=== PATIENT | female | born 1990 | race Caucasian/White ===

== ENCOUNTER 2021-10-01 10:53 | Outpatient (CLI) | payer BC, MEDICAID, SELFPAY ==
[2021-10-01 12:19] LABS: Hematocrit 40.6 % (37-47); Hemoglobin 14.3 g/dL (12.0-15.0); Mean Corp Hgb Conc 35.2 g/dL (32-36); Mean Corpuscular Hgb 30.6 pg (27.0-32.0); Mean Corpuscular Volume 86.9 fL (81-99); Mean Platelet Vol. 9.4 fl (6.2-12.0); Platelet Count 295 K/mm3 (150-450); RBC Distribution Width CV 12.4 % (11.6-14.6); RBC Distribution Width SD 39.4 fl (35.1-43.9); Red Blood Count 4.67 M/mm3 (4.2-5.4); White Blood Count 6.1 K/mm3 (4.4-11.0)
[2021-10-01 13:32] LABS: Estradiol 111.8 pg/mL; Luteinizing Hormone 4.6 mIU/mL; T4 Free Direct 0.95 ng/dL (0.76-1.46); Thyroid Stim Hormone (TSH) 0.96 uIU/mL (0.358-3.74)
[2021-10-04 09:25] LABS: Testosterone Free 2.3 pg/mL (0.0-4.2)
[2021-10-10 07:54] LABS: HPV APTIMA, High Risk Negative (Negative)
[2021-10-10 07:57] LABS: HPV Reflexed? YES, CHARGE PATIENT
== END 2021-10-01 23:59 | disposition home or self-care (01) ==
LOC: WOBLAB 11:06
PROVIDERS: Referring Provider Obstetrics & Gynecology; Visit Provider Obstetrics & Gynecology
DX: R10.2 Pelvic and perineal pain (principal); Z12.4 Encounter for screening for malignant neoplasm of cervix
CPT/HCPCS: 36415; 82670; 83001; 83002; 84402; 84439; 84443; 85027; 87624; 88175; G0145

== ENCOUNTER 2025-06-20 15:42 | Emergency (ER) | payer OTHER, SELFPAY ==
[2025-06-20 15:42] VITALS: BP 140/87; PULSE 91; RESP 16; TEMP 36.9; O2SAT 100; BMI 29.2
--- NOTE | 2025-06-20 17:12 | EDS_ITS ---
HPI History of Present Illness Chief Complaint: Bite Narrative Narrative: Patient is a 35-year-old female presenting to the emergency department after a cat bite last night. Patient states that there is a stray cat in her neighborhood and it ran in her house when her door was open last evening. She states that the cat got into a fight with her cats when she tried to break it up and then the cat bit her left wrist. She states it then scratched her right arm. She denies any other injuries. States that the cat is no longer in her house and she is unsure where it is at. Unsure of its rabies vaccine status. [facility] Medical History unable to obtain Home Medications ?Medication ?Instructions ?Recorded ?Last Taken ?Type amoxicillin 875 mg-potassium 1 tab PO BID 7 days #14 t abs 06/20/25 Unknown Rx clavulanate 125 mg tablet Allergy/AdvReac Type Severity Reaction Status Date / Time No Known Allergies Allergy Verified 06/20/25 15:49 Social History Smoking Status: Unknown if ever smoked ROS ROS ED ROS Narrative see HPI EXAM Physical Exam Narrative Exam Narrative: Vital signs: Reviewed General: Alert and oriented x 3. No acute distress. Well-appearing, nontoxic HEENT: Head is normocephalic and atraumatic, sinuses nontender, pupils equal round and reactive. Nares are patent. Oropharynx and throat exams normal. Neck: Supple without lymphadenopathy nontender Cardiovascular: Regular rate and rhythm, no murmurs. No rubs or gallops. Normal S1 and S2 Respiratory: Clear to auscultation bilaterally. No wheezes, rales, rhonchi Abdominal: Soft and nontender. Normal bowel sounds. No guarding or rebound. Nonsurgical abdomen Extremities: There are scattered abrasions to the mid and distal right forearm. No lacerations or gaping wounds. Small puncture like abrasions to the left volar forearm. Radial pulse intact bilaterally. No tenderness. No bruising. Normal range of motion. Normal sensation. The rest of the physical exam is unremarkable Const Vital Signs: 06/20/25 15:42 06/20/25 19:35 Temperature 98.5 F 98.4 F Temperature Source Temporal Pulse Rate 91 69 Respiratory Rate 16 12 Blood Pressure 140/87 H 93/63 Blood Pressure Mean 104 73 Pulse Ox 100 100 Oxygen Delivery Method Room Air MDM MDM MDM Narrative Medical decision making narrative: Patient is a 35-year-old female presenting to the emergency department for a cat bite last night. Patient was seen and examined. Vitals are stable. Patient resting in bed comfortably no acute distress. Discussed rabies vaccine and immunoglobulin with the patient although low chance with a stray cat. She is agreeable with both. She will also be given her first dose of Augmentin. She has no large puncture wounds or gaping lacerations to the hands or forearms that I think require x-ray imaging. I injected some of the immunoglobulin around the wounds that the patient reports are bite wounds. Again very difficult to tell given how superficial the wounds appear. Per nursing staff the patient did have a syncopal event after receiving one of the shots. I went to reevaluate the patient and she is sitting in bed with no complaints. States she feels back to baseline at this time. She had this happen to her once before. I do not think this requires further workup given she is back to baseline. Patient was educated on returning onto days 3, 7 and 14 for repeat vaccines. Patient discharged from the Emergency Department. I do not feel that the patient's evaluation reveals any acute reason for admission at this time. I instructed them to either follow-up with their primary care physician or promptly return to the Emergency Department for reevaluation should symptoms worsen or new symptoms develop. I explained what symptoms would indicate the need to return to the emergency department. Shared decision making was used. The patient voiced understanding of the treatment plan and is agreeable with it. Clinical impression: Cat bite History & Record Review Discussion w/independent historian: Patient Discharge Plan Triage Chief Complaint: Bite ED Provider: Seda Arce Dx/Rx/DC Orders Clinical Impression: Cat bite Instructions: ED Cat Bite Prescriptions: New amoxicillin-pot clavulanate 875-125 mg tablet 1 tab PO BID 7 Days Qty: 14 0RF Primary Care Provider: Care Physician,No Primary Referrals: Jim Leonard MD [Med Staff - Active Staff, Family Practice] - As soon as possible Care Physician,No Primary [Primary Care Provider, Medical] Activity Restrictions/Additional Instructions: You need to return on days 3, 7 and 14 for repeat rabies vaccine. Watch the areas for signs of infection which would include redness, drainage, warmth or swelling. Take the antibiotic as prescribed. Your evaluation in the Emergency Department did not reveal any acute reason for admission. However, I want to emphasize that you may be early in the course of a disease process or illness even if it is not present. For this reason you should follow-up within 24 hours for reevaluation with either your primary care physician or if necessary back here in the Emergency Department. You should return to the Emergency Department immediately if your symptoms worsen or new symptoms develop. Print Language: Citizen Of [place] Disposition Disposition: Home, Self Care Discharge Date/Time: 06/20/25 19:36
--- NOTE | 2025-06-20 17:46 | CM.ED ---
Social work Reason for referral: no PCP Referral source: case find SW entered patient's room, introducing self and role at [facility]. Patient welcomed SW visit and confirmed lacking a PCP. Patient accepted resources of [facility] Provider Directory and [facility] information. Patient denied further needs at this time. Rosalva Nguyễn, [employer], [employer]ER
[2025-06-20] MEDS: Rabies Immune Globulin/PF 300 UNIT/ML, 5 ML VIAL 1500 UNIT IM (18:57)
[2025-06-20] MEDS: Rabies Immune Globulin/PF 300 UNIT/ML, 1 ML VIAL 140 UNIT IM (19:03)
[2025-06-20 19:35] VITALS: BP 93/63; PULSE 69; RESP 12; TEMP 36.9; O2SAT 100
== END 2025-06-20 19:36 | disposition home or self-care (01) ==
PROVIDERS: Emergency Provider Student in an Organized Health Care Education/Training Program; Visit Provider Student in an Organized Health Care Education/Training Program
DX: S50.871A Other superficial bite of right forearm, initial encounter (principal); S50.872A Other superficial bite of left forearm, initial encounter; W55.01XA Bitten by cat, initial encounter; Y93.89 Activity, other specified; Y92.019 Unspecified place in single-family (private) house as the place of occurrence of the external cause; Z23 Encounter for immunization
CPT/HCPCS: 90675; 96372; 99282; 90375

== ENCOUNTER 2025-06-23 12:31 | Outpatient (CLI) | payer OTHER, SELFPAY ==
[2025-06-23 12:32] VITALS: BP 167/89; PULSE 91; RESP 20; O2SAT 100
--- OUTSIDE RECORDS SUMMARY | 2025-06-23 12:42 | XMS RPT_ITS | CCD ---
Author Organization [facility] Inform ion Partnership [facility] Care Team Providers Care Director Blood Bank Name Role Phone Unavailable Unavailable Unavailable Bernardo Puente Primary Care Unavailable Zuleyka Gill N.P. Attending Bernardo Noguera Attending Unavailable Bernardo Puente Primary Care Unavailable Karthikeyan Castro Attending Unavailable Stephania Nolasco Primary Care Provider [phone] STEPHANIA NOLASCO Referring Unavailable STEPHANIA NOLASCO Primary Care Unavailable Assessment, Health Risk Referring Unavaila ble Assessment, Health Risk Attending Unavaila ble Care Physician, No Primary Primary Care Unava ilable Care Physician, No Primary Primary Care Unava ilJesus Walter Referring Unavailable Jesus Villagomez Attending Unavailable Allergies Allergy Classification Reported Allergen(s) Allergy Type Date of Onset Reaction(s) Facility (2 sources) erythromycin; Translations: [Erythromycin] Drug Allergy [facility] (2 sources) medroxyPROGESTERo ne; Translations: [Depo-Provera] Drug Allergy [facility] (5 sources) Penicillins; Translations: [Penicillins] drug allergy 04-21-2017 [facility] Medications Current Medications Medication Drug Class(es) Dates Sig (Normalized) Sig (Original) doxycycline hyclate 100 mg oral tablet (1 source) Tetracycline-cla ss Drug Start: 02-19-2020 End: 02-29-2020 take 1 tablet by mouth twice daily doxycycline hyclate (VIBRA-TABS) 100 MG tablet Indications: Lymphadenopathy of head and neck Take 1 tablet by mouth 2 times daily for 10 days 20 tablet 0 02/19/2020 02/29/2020 Active Completed/Discontinued Medications Medication Drug Class(es) Dates Sig (Normalized) Sig (Original) acetaminophen 500 mg oral capsule (2 sources) take 1 capsule by mouth every six hours as needed Acetaminophen 500 MG Oral Capsule [Mapap] 1 capsule(s) Every 6 hours PRN as need for pain as need for pain By Mouth Active cephalexin 500 mg oral capsule (2 sources) Cephalosporin Antibacterial End: 10-26-2015 take 1 capsule by mouth every six hours cephalexin 500 mg capsule 1 capsule(s) Every 6 hours Orally Oct 26, 2015 Discontinued Course Completed docusate sodium 50 mg / sennosides, correction 8.6 mg oral tablet (2 sources) take 1 tablet by mouth every twenty-four hours as needed Docusate Sodium 50 MG / sennosides, FPC 8.6 MG Oral Tablet [Nolvia-Colace Reformulated Aug 2007] 1 tablet Every day PRN Oral Active floride (2 sources) End: 04-12-2013 floride 1 tablet Every day Apr 12, 2013 Discontinued Course Completed ibuprofen 200 mg oral tablet (2 sources) Nonsteroidal Anti-inflammatory Drug take 3 tablets by mouth every six hours Ibuprofen 200 MG Oral Tablet [Motrin] 3 tablet Every 6 hours Oral Active ondansetron 4 mg oral tablet (2 sources) Serotonin-3 Receptor Antagonist End: 04-12-2013 take 2 tablets by mouth every twelve hours as needed Ondansetron 4 MG Oral Tablet [Zofran] 2 tablet(s) Every 12 hours PRN as need for nausea as need for nausea Orally Apr 12, 2013 Discontinued Course Completed PNV no.40-iron fum-FA cmb no.1 (2 sources) take 1 tablet by mouth every twenty-four hours as needed PNV-Select 27 mg-1 mg tablet 1 tablet Every day PRN Oral Active PNV#75-iron [id number] (2 sources) End: 10-26-2015 take 1 tablet by mouth once daily Daily Oral 1 tablet Every day Oral Oct 26, 2015 Discontinued Course Completed Problems Active Problems Problem Classification Problem Date Documented Date Episodic/Chronic Lymphadenitis (2 sources) Head and neck lymphadenopathy; Translations: [Lymphadenopathy of head and neck] Onset: 02-19-2020 02-19-2020 Episodic Other female genital disorders (1 source) Pain in female genitalia on intercourse; Translations: [Dyspareunia in female] Onset: 02-19-2020 02-19-2020 Chronic Other nervous system disorders (1 source) Other acute postprocedural pain; Translations: [G89.18 - Other acute postprocedural pain] Onset: 10-19-2018 Episodic Poisoning by nonmedicinal substances (1 source) Toxic effect of unspecified spider venom, accidental (unintentional), initial encounter; Translations: [Spider bite] Onset: 02-19-2020 02-19-2020 Unclassified (2 sources) Threatened Miscarriaged Onset: 02-17-2015 08-09-2015 Unclassified (1 source) Patient encounter status; Translations: [Encounter for annual physical exam] Onset: 02-19-2020 02-19-2020 Past or Other Problems Problem Classification Problem Date Documented Da te Episodic/Chronic Abdominal pain (5 sources) Pain in pelvis; Translations: [Abdominal pain] Onset: 2 Resolved: 6 08-09-2015 Episodic Gastrointestinal hemorrhage (2 sources) Hematochezia Onset: 2 Resolved: 3 08-15-2012 Episodic Nausea and vomiting (4 sources) Nausea, vomiting and diarrhea; Translations: [Vomiting] Onset: 2 Resolved: 6 08-09-2015 Episodic Noninfectious gastroenteritis (2 sources) Acute gastroenteritis Onset: 3 Resolved: 6 08-09-2015 Episodic Normal and/or delivery (6 sources) - on history; Translations: [] Onset: 3 11-03-2012 Episodic Other complications of (4 sources) Superficial thrombophlebitis in ; Translations: [Mild hyperemesis-not delivered] Onset: 3 Resolved: 6 08-09-2015 Episodic Other gastrointestinal disorders (2 sources) Constipation Onset: 2 Resolved: 3 08-15-2012 Episodic Polyhydramnios and other problems of amniotic cavity (2 sources) Oligohydramnios Resolved: 6 08-09-2015 Episodic Results Test Name Value Interpretation Reference Range Facil ity Mumps Antibody,IgGon 023 MUMPS Ab, IgG 33.0 AU/mL Normal Immune >10.9 [facility] Comment on above: Result Comment: Nega tive <9.0 Equivocal 9.0 - 10.9 Positive >10.9 A positive result generally indicates past exposure to Mumps virus or previous vaccination. Performed By: #### L 506.0400, L3100.5170, L3100.5125, L3300.1750, L3400.4800, L100.0500, L501.9520 #### [facility] [address] [place], [address] [facility] EMP Rubeola Titeron 03-1 RUBEOLA Ab, IgG > 300.0 Normal Immune >16.4 [facility] Comment on above: Result Comment: Nega tive <13.5 Equivocal 13.5 - 16.4 Positive >16.4 Presence of antibodies to Rubeola is presumptive evidence of immunity except when acute infection is suspected. Performed at: [address] [id number] [employer] Hand: Priyank Lemon PhD, Phone: [phone] Performed By: #### L 506.0400, L3100.5170, L3100.5125, L3300.1750, L3400.4800, L100.0500, L501.9520 #### [facility] [address] [place] [place], [address] Hepatitis B Surf AB - EMPon 09-21-2022 HEP B Surf Ab Reactive Normal [facility] Comment on above: Result Comment: Non Reactive: Inconsistent with immunity less than <10 mIU/mL Reactive: Consistent with immunity greater than or equal to 10 mIU/mL Performed By: #### L 3400.1750, L3100.0539, L3100.3400, L509.4015 #### [facility] [address] [place], [address] [facility] 0 09-21-2022 Rubella IgG Reactive Normal Nonreactive [facility] Comment on above: Result Comment: Anti body Results Interpretation of Immune Status Non Reactive Presumed Non-Immune Equivocal Equivocal Reactive Presumed Immune Performed By: #### L 3400.1750, L3100.0539, L3100.3400, L509.4015 #### [facility] [place], [address] CNOVon 10-14-2021 CNOV Office Visit (UCWSTR ) EDMUND ATKINS ([id number]) 1990 F Date Time Provider Department 10/14/21 8:30 AM TAMRA BEASLEY [facility] During your visit today, we recorded the following information about you: Temperature Pulse Respiration Blood pressure 98.6 degrees 102/minute 20/minute 130/78 Weight 83.1 kg Tamra Beasley APRN.DONOR SERVICES MANAGER 10/14/2021 9:01 AM Signed Subjective HPI Nontoxic-appearing female presents urgent care chief complaint possible sinus infection. Duration of symptoms 8 to 9 days. Associated symptoms sinus pressure sinus headache nonproductive cough. Patient states she contributes nonproductive cough to postnasal drip. Has will cough over the last few days. States initially sinus pressure was improving slightly and worsened again a few days ago. Has been using Sudafed this has helped some. Denies any known sick contacts. Denies any significant pain. Did take a negative COVID-19 test at home today. Denies any fever body aches chills productive cough chest pain shortness of breath pleuritic pain hemoptysis nausea vomiting abdominal pain or change in bowel or bladder habits. Past medical history prescription medication use allergies reviewed. Denies chance of is not breast-feeding. .Patient presents with: Nasal Congestion: cough, chest congestion, DORADO, x1 week History reviewed. No pertinent past medical history. History reviewed. No pertinent surgical history. ALLERGIES Patient has no known allergies. MEDICATIONS No prescriptions on file. History reviewed. No pertinent family history. Social History Tobacco Use - Smoking status: Never Smoker - Smokeless tobacco: Never Used Substance Use Topics - Alcohol use: Not on file - Drug use: Not on file BP 130/78 Pulse 102 Temp 37 ?C (98.6 ?F) Resp 20 Wt 83.1 kg (183 lb 3.2 oz) SpO2 99% hr 83 Review of Systems Constitutional: Negative for chills, fever and malaise/fatigue. HENT: Positive for congestion and sinus pain. Negative for ear discharge, ear pain and sore throat. Eyes: Negative for blurred vision, pain, discharge and redness. Respiratory: Positive for cough. Negative for hemoptysis, sputum production, shortness of breath, wheezing and stridor. Cardiovascular: Negative for chest pain. Gastrointestinal: Negative for abdominal pain, diarrhea, nausea and vomiting. Musculoskeletal: Negative for myalgias. Skin: Negative for itching and rash. Neurological: Positive for headaches. Negative for dizziness. Objective Physical Exam Vitals and nursing note reviewed. Constitutional: General: She is not in acute distress. Appearance: She is not diaphoretic. HENT: Head: Normocephalic and atraumatic. Jaw: No trismus. Right Ear: Hearing, tympanic membrane, ear canal and external ear normal. No decreased hearing noted. No drainage, swelling or tenderness. Tympanic membrane is not perforated, erythematous or bulging. Left Ear: Hearing, tympanic membrane, ear canal and external ear normal. No decreased hearing noted. No drainage, swelling or tenderness. Tympanic membrane is not perforated, erythematous or bulging. Nose: Right Sinus: Maxillary sinus tenderness present. Left Sinus: Maxillary sinus tenderness present. Mouth/Throat: Pharynx: Uvula midline. No oropharyngeal exudate, posterior oropharyngeal erythema or uvula swelling. Tonsils: No tonsillar abscesses. Eyes: General: Right eye: No discharge. Left eye: No discharge. Conjunctiva/sclera: Conjunctivae normal. Pupils: Pupils are equal, round, and reactive to light. Cardiovascular: Rate and Rhythm: Normal rate and regular rhythm. Heart sounds: Normal heart sounds. Pulmonary: Effort: Pulmonary effort is normal. No respiratory distress. Breath sounds: Normal breath sounds. No stridor. No wheezing, rhonchi or rales. Chest: Chest wall: No tenderness. Abdominal: Palpations: Abdomen is soft. Tenderness: There is no abdominal tenderness. Musculoskeletal: General: No tenderness. Normal range of motion. Cervical back: Normal range of motion and neck supple. Lymphadenopathy: Head: Right side of head: No submental, submandibular, tonsillar, preauricular, posterior auricular or occipital adenopathy. Left side of head: No submental, submandibular, tonsillar, preauricular, posterior auricular or occipital adenopathy. Cervical: No cervical adenopathy. Right cervical: No superficial or posterior cervical adenopathy. Left cervical: No superficial or posterior cervical adenopathy. Skin: General: Skin is warm and dry. Findings: No rash. Neurological: Mental Status: She is alert and oriented to person, place, and time. ASSESSMENT/PLAN: 1. Acute maxillary sinusitis, recurrence not specified - ICD9: 461.0, ICD10: J01.00 Patient diagnosed with maxillary sinusitis. Patiently placed on doxycycline. Patient was educated (more content not included)... Normal [facility] PAP I-G w/rfx hrHPV-Aptimaon 10-10-2021 ADEQ Comment Normal . [facility] Comment on above: Order Comment: CYTOL OGY INFORMATION: - CLINICAL INFORMATION: ANNUAL - Non - DATE LMP/MENOPAUSE: 792216 LMP - COLLECTION VIAL: Thin Prep Vial - BEEF [employer]ATTLE [employer] WORKER SOURCE: CERVICAL/ENDOCERVICAL - COLLECTION TECHNIQUE: BRUSH/SPATULA Specimen Comment: [id number] Specimen Comment: No. of containers..01 ThinPrep Vial Result Comment: Sati sfactory for evaluation. Endocervical and/or squamous metaplastic cells (endocervical component) are present. Performed By: #### L 7400.0353 #### [facility] [place], [address] COMMENT Comment Normal . [facility] Comment on above: Order Comment: CYTOL OGY INFORMATION: - CLINICAL INFORMATION: ANNUAL - Non - DATE LMP/MENOPAUSE: 326712 LMP - COLLECTION VIAL: Thin Prep Vial - BEEF [employer]ATTLE F[employer] WORKER SOURCE: CERVICAL/ENDOCERVICAL - COLLECTION TECHNIQUE: BRUSH/SPATULA Specimen Comment: [id number] Specimen Comment: No. of containers..01 ThinPrep Vial Result Comment: This liquid based ThinPrep(R) pap test was screened with the use of an image guided system. Performed By: #### L 7400.0353 #### [facility] [address] [place], [place], [id number] DIAG Comment Abnormal . [facility] Comment on above: Order Comment: CYTOL OGY INFORMATION: - CLINICAL INFORMATION: ANNUAL - Non - DATE LMP/MENOPAUSE: 078833 LMP - COLLECTION VIAL: Thin Prep Vial - BEEF [employer]LE [employer] WORKER SOURCE: CERVICAL/ENDOCERVICAL - COLLECTION TECHNIQUE: BRUSH/SPATULA Specimen Comment: [id number] Specimen Comment: No. of containers..01 ThinPrep Vial Result Comment: EPIT HELIAL CELL ABNORMALITY. ATYPICAL SQUAMOUS CELLS OF UNDETERMINED SIGNIFICANCE (ASC-US). Performed By: #### L 7400.0353 #### [facility] [address] [place], [address] HPV APTIMA, HR Negative Normal Negative [facility] Comment on above: Order Comment: CYTOL OGY INFORMATION: - CLINICAL INFORMATION: ANNUAL - Non - DATE LMP/MENOPAUSE: 3160812 LMP - COLLECTION VIAL: Thin Prep Vial - BEEF CATTLE F[employer] WORKER SOURCE: CERVICAL/ENDOCERVICAL - COLLECTION TECHNIQUE: BRUSH/SPATULA Specimen Comment: [id number] Specimen Comment: No. of containers..01 ThinPrep Vial Result Comment: This nucleic acid amplification test detects fourteen high- risk HPV types (16,18,31,33,35,39,45,51,52,56,58,59,66,68) without differentiation. Performed at: - [facility] [id number] [employer] Hand: Yahaira Ng MD, Phone: [phone] Performed at: = - [facility] [id number] [employer] Hand: Yahaira Ng MD, Phone: [phone] Performed By: #### L 7400.0353 #### [facility] [address] [place], [place], [id number] HPV RFLX Comment Normal . [facility] Comment on above: Order Comment: CYTOL OGY INFORMATION: - CLINICAL INFORMATION: ANNUAL - Non - DATE LMP/MENOPAUSE: 047053 LMP - COLLECTION VIAL: Thin Prep Vial - BEEF CATTLE F[employer] WORKER SOURCE: CERVICAL/ENDOCERVICAL - COLLECTION TECHNIQUE: BRUSH/SPATULA Specimen Comment: [id number] Specimen Comment: No. of containers..01 ThinPrep Vial Result Comment: See below for HPV testing results. Performed By: #### L 7400.0353 #### [facility] [address] [place], [place], [address] PAPSMR Comment Normal . [facility] Comment on above: Order Comment: CYTOL OGY INFORMATION: - CLINICAL INFORMATION: ANNUAL - Non - DATE LMP/MENOPAUSE: 145370 LMP - COLLECTION VIAL: Thin Prep Vial - BEEF CATTLE F[employer] WORKER SOURCE: CERVICAL/ENDOCERVICAL - COLLECTION TECHNIQUE: BRUSH/SPATULA Specimen Comment: [id number] Specimen Comment: No. of containers..01 ThinPrep Vial Result Comment: The Pap smear is a screening test designed to aid in the detection of premalignant and malignant conditions of the uterine cervix. It is not a diagnostic procedure and should not be used as the sole means of detecting cervical cancer. Both false-positive and false-negative reports do occur. Performed By: #### L 7400.0353 #### [facility] [address] [place], [address] Path.prov.IDC-9 Comment Normal . [facility] Comment on above: Order Comment: CYTOL OGY INFORMATION: - CLINICAL INFORMATION: ANNUAL - Non - DATE LMP/MENOPAUSE: 688909 LMP - COLLECTION VIAL: Thin Prep Vial - BEEF CATTLE FARM WORKER SOURCE: CERVICAL/ENDOCERVICAL - COLLECTION TECHNIQUE: BRUSH/SPATULA Specimen Comment: [id number] Specimen Comment: No. of containers..01 ThinPrep Vial Result Comment: [id number] Performed By: #### L 7400.0353 #### [facility] [address] [place], [place], [address] PERFORM Comment Normal . [facility] Comment on above: Order Comment: CYTOL OGY INFORMATION: - CLINICAL INFORMATION: ANNUAL - Non - DATE LMP/MENOPAUSE: 842453 LMP - COLLECTION VIAL: Thin Prep Vial - BEEF CATTLE F[employer] WORKER SOURCE: CERVICAL/ENDOCERVICAL - COLLECTION TECHNIQUE: BRUSH/SPATULA Specimen Comment: [id number] Specimen Comment: No. of containers..01 ThinPrep Vial Result Comment: Ana Rebollar, President & Founder (ASCP) Performed By: #### L 7400.0353 #### [facility] [address] [place], [address] RECOMM Comment Abnormal . [facility] Comment on above: Order Comment: CYTOL OGY INFORMATION: - CLINICAL INFORMATION: ANNUAL - Non - DATE LMP/MENOPAUSE: 320816 LMP - COLLECTION VIAL: Thin Prep Vial - BEEF CATTLE FARM WORKER SOURCE: CERVICAL/ENDOCERVICAL - COLLECTION TECHNIQUE: BRUSH/SPATULA Specimen Comment: [id number] Specimen Comment: No. of containers..01 ThinPrep Vial Result Comment: Sugg est follow up as clinically appropriate. Performed By: #### L 7400.0353 #### [facility] [address] [place], [address] SIGN Comment Normal . [facility] Comment on above: Order Comment: CYTOL OGY INFORMATION: - CLINICAL INFORMATION: ANNUAL - Non - DATE LMP/MENOPAUSE: 172462 LMP - COLLECTION VIAL: Thin Prep Vial - BEEF CATTLE FARM WORKER SOURCE: CERVICAL/ENDOCERVICAL - COLLECTION TECHNIQUE: BRUSH/SPATULA Specimen Comment: [id number] Specimen Comment: No. of containers..01 ThinPrep Vial Result Comment: Susie Pacheco MD, Pathologist Performed By: #### L 7400.0353 #### [facility] [address] [place], [place], [address] COMM . Normal . [facility] Comment on above: Order Comment: CYTOL OGY INFORMATION: - CLINICAL INFORMATION: ANNUAL - Non - DATE LMP/MENOPAUSE: 021198 LMP - COLLECTION VIAL: Thin Prep Vial - BEEF CATTLE FARM WORKER SOURCE: CERVICAL/ENDOCERVICAL - COLLECTION TECHNIQUE: BRUSH/SPATULA Specimen Comment: [id number] Specimen Comment: No. of containers..01 ThinPrep Vial Performed By: #### L 7400.0353 #### [facility] [address] [place], [place], [id number] Testosterone Freeon 10-05-19 22 TESTOSTER FREE 2.3 pg/mL Normal 0.0-4.2 [facility] Comment on above: Result Comment: Perf ormed at: [facility] [id number] [employer] Hand: Anya Kim MD, Phone: [phone] Performed By: #### L 506.0400, L3100.5170, L3100.5125, L3300.1750, L3400.4800, L100.0500, L501.9520 #### [facility] [address] [place], [place], [id number] Basophil percentageon 2021 WBC (Bld) [#/Vol] 6.1 10*3/uL 4.4-11.0 [facility] Work Phone: Blood erythrocytes count (nu mber/volume)on 10-01-2021 RBC (Bld) [#/Vol] 4.67 10*6/uL 4.2-5.4 [facility] Work Phone: Blood hemoglobin measurement (mass/volume)on 10-01-2021 Hemoglobin (Bld) [Mass/Vol] 14.3 g/dL 12.0-15.0 [facility] Work Phone: Blood platelet mean volumeon 10-01-2021 Platelet mean volume (Bld) [Entitic vol] 9.4 fL 6.2-12.0 [facility] Work Phone: CBC-Complete Blood Cnt No Di ffon 10-01-2021 Erythrocyte distribution width (RBC) [Ratio] 12.4 % Normal 11.6-14.6 [facility] Comment on above: Performed By: #### L 506.0400, L3100.5170, L3100.5125, L3300.1750, L3400.4800, L100.0500, L501.9520 #### [facility] [address] [place], [address] Hematocrit (Bld) [Volume fraction] 40.6 % Normal 37-47 [facility] Comment on above: Performed By: #### L 506.0400, L3100.5170, L3100.5125, L3300.1750, L3400.4800, L100.0500, L501.9520 #### [facility] [address] [place], [address] Hemoglobin (Bld) [Mass/Vol] 14.3 g/dL Normal 12.0-15.0 [facility] Comment on above: Performed By: #### L 506.0400, L3100.5170, L3100.5125, L3300.1750, L3400.4800, L100.0500, L501.9520 #### [facility] [address] [place], [address] MCH (RBC) [Entitic mass] 30.6 pg Normal 27.0-32.0 [facility] Comment on above: Performed By: #### L 506.0400, L3100.5170, L3100.5125, L3300.1750, L3400.4800, L100.0500, L501.9520 #### [facility] [address] [place], [address] MCHC (RBC) [Mass/Vol] 35.2 g/dL Normal 32-36 [facility] Comment on above: Performed By: #### L 506.0400, L3100.5170, L3100.5125, L3300.1750, L3400.4800, L100.0500, L501.9520 #### [facility] [address] [place], [address] MCV (RBC) [Entitic vol] 86.9 fL Normal 81-99 [facility] Comment on above: Performed By: #### L 506.0400, L3100.5170, L3100.5125, L3300.1750, L3400.4800, L100.0500, L501.9520 #### [facility] [address] [place], [address] Platelet mean volume (Bld) [Entitic vol] 9.4 fL Normal 6.2-12.0 [facility] Comment on above: Performed By: #### L 506.0400, L3100.5170, L3100.5125, L3300.1750, L3400.4800, L100.0500, L501.9520 #### [facility] [address] [place], [address] Platelets (Bld) [#/Vol] 295 10*3/uL Normal 150-450 [facility] Comment on above: Performed By: #### L 506.0400, L3100.5170, L3100.5125, L3300.1750, L3400.4800, L100.0500, L501.9520 #### [facility] [address] [place], [address] RBC (Bld) [#/Vol] 4.67 10*6/uL Normal 4.2-5.4 [facility] Comment on above: Performed By: #### L 506.0400, L3100.5170, L3100.5125, L3300.1750, L3400.4800, L100.0500, L501.9520 #### [facility] [address] [place], [address] RDW SD 39.4 fl Normal 35.1-43.9 [facility] Comment on above: Performed By: #### L 506.0400, L3100.5170, L3100.5125, L3300.1750, L3400.4800, L100.0500, L501.9520 #### [facility] [address] [place], [address] WBC (Bld) [#/Vol] 6.1 10*3/uL Normal 4.4-11.0 [facility] Comment on above: Performed By: #### L 506.0400, L3100.5170, L3100.5125, L3300.1750, L3400.4800, L100.0500, L501.9520 #### [facility] [address] [place], [place], [id number] Determination of erythrocyte mean corpuscular volume (MCV)on 10-01-2021 MCV (RBC) [Entitic vol] 86.9 fL 81-99 [facility] Work Phone: Estradiolon 10-01-2021 ESTRADIOL 111.8 pg/mL Normal [facility] Comment on above: Result Comment: NORM AL REFERENCE RANGES FEMALE FOLLICULAR 21.4 - 164.8 pg/mL MID-CYCLE PEAK 49.9 - 367.2 pg/mL LUTEAL 40.2 - 259.0 pg/mL POST-MENOPAUSAL ON MHT <11.0 - 462.1 pg/mL NOT ON MHT <11.0 - 58.3 pg/mL MALE <11.0 - 52.5 pg/mL NOTE: [facility] HAS CONFIRMED THE DRUG FULVETRANT (FASLODEX) MAY CAUSE FALSELY ELEVATED ESTRADIOL RESULTS WHEN USING THIS TEST METHOD. IF PATIENT IS TAKING FULVESTRANT AN ALTERNATIVE METHOD SHOULD BE USED TO DETERMINE ESTRADIOL CONCENTRATION. Performed By: #### L 506.0400, L3100.5170, L3100.5125, L3300.1750, L3400.4800, L100.0500, L501.9520 #### [facility] [address] [place], [place], [id number] Follicle Stimulating Hormone on 10-01-2021 FSH 5.0 mIU/mL Normal [facility] Comment on above: Result Comment: NORMAL REFERENCE RANGES FEMALE FOLLICULAR 2.3 - 12.6 mIU/mL MID-CYCLE PEAK 5.2 - 17.5 mIU/mL LUTEAL 1.7 - 12.9 mIU/mL POST-MENOPAUSAL ON MHT 5.9 - 72.8 mIU/mL NOT ON MHT 12.7 - 132.2 mlU/mL MALE 0.7 - 10.8 mIU/mL Performed By: #### L 506.0400, L3100.5170, L3100.5125, L3300.1750, L3400.4800, L100.0500, L501.9520 #### [facility] [address] [place], [place], [id number] Hematocrit Auto (Bld) [Volum e fraction]on 10-01-2021 Hematocrit (Bld) [Volume fraction] 40.6 % 37-47 [facility] Work Phone: Laboratory - Chemistry and C hemistry - challengeon 10-01-2021 Free T4 [Mass/Vol] 0.95 ng/dL 0.76-1.46 [facility] Work Phone: Laboratory - Hematology and Cell countson 10-01-2021 Erythrocyte distribution width (RBC) [Entitic vol] 39.4 fL 35.1-43.9 [facility] Work Phone: Erythrocyte distribution width (RBC) [Ratio] 12.4 % 11.6-14.6 [facility] Work Phone: MCH (RBC) [Entitic mass] 30.6 pg 27.0-32.0 [facility] Work Phone: Luteinizing Hormoneon 2021 LH 4.6 mIU/mL Normal [facility] Comment on above: Result Comment: NORMAL REFERENCE RANGES FEMALE FOLLICULAR 1.9 - 26.2 mIU/mL MID-CYCLE PEAK 22.8 - 76.1 mIU/mL LUTEAL 0.6 - 16.6 mIU/mL POST-MENOPAUSAL ON MHT 1.1 - 52.4 mIU/mL NOT ON MHT 8.6 - 61.8 mIU/mL MALE 1.2 - 10.6 mIU/mL Performed By: #### L 506.0400, L3100.5170, L3100.5125, L3300.1750, L3400.4800, L100.0500, L501.9520 #### [facility] [address] [place], [place], [address] MCHC Auto (RBC) [Mass/Vol]on 10-01-2021 MCHC (RBC) [Mass/Vol] 35.2 g/dL 32-36 [facility] Work Phone: No Panel Informationon 10-01 Follicle Stimulating Hormone 5.0 mIU/mL [facility] Work Phone: Comment on above: NORMAL REFERENCE RAN GES FEMALE FOLLICULAR 2.3 - 12.6 mIU/mL MID-CYCLE PEAK 5.2 - 17.5 mIU/mL LUTEAL 1.7 - 12.9 mIU/mL POST-MENOPAUSAL ON MHT 5.9 - 72.8 mIU/mL NOT ON MHT 12.7 - 132.2 mlU/mL MALE 0.7 - 10.8 mIU/mL Luteinizing Hormone 4.6 mIU/mL [facility] Work Phone: Comment on above: NORMAL REFERENCE RAN GES FEMALE FOLLICULAR 1.9 - 26.2 mIU/mL MID-CYCLE PEAK 22.8 - 76.1 mIU/mL LUTEAL 0.6 - 16.6 mIU/mL POST-MENOPAUSAL ON MHT 1.1 - 52.4 mIU/mL NOT ON MHT 8.6 - 61.8 mIU/mL MALE 1.2 - 10.6 mIU/mL Thyroid Stimulating Hormone (TSH) 0.96 uIU/mL 0.358-3.74 [facility] Work Phone: Platelets bldon 10-01-2021 Platelets (Bld) [#/Vol] 295 10*3/uL 150-450 [facility] Work Phone: Serum or plasma estradiol (E 2) measurement (mass/volume)on 10-01-2021 E2 [Mass/Vol] 111.8 pg/mL [facility] Work Phone: Comment on above: NORMAL REFERENCE RAN GES FEMALE FOLLICULAR 21.4 - 164.8 pg/mL MID-CYCLE PEAK 49.9 - 367.2 pg/mL LUTEAL 40.2 - 259.0 pg/mL POST-MENOPAUSAL ON MHT <11.0 - 462.1 pg/mL NOT ON MHT <11.0 - 58.3 pg/mL MALE <11.0 - 52.5 pg/mL NOTE:[employer] HAS CONFIRMED THE DRUG FULVETRANT (FASLODEX) MAY CAUSE FALSELY ELEVATED ESTRADIOL RESULTS WHEN USING THIS TEST METHOD. IF PATIENT IS TAKING FULVESTRANT AN ALTERNATIVE METHOD SHOULD BE USED TO DETERMINE ESTRADIOL CONCENTRATION. Serum or plasma testosterone free measurement (mass/volume)on 10-01-2021 Testosterone Free [Mass/Vol] 2.3 pg/mL [facility] Work Phone: Comment on above: Performed at: [address] [id number] Director: Anya Kim MD, Phone: [phone] T4 Free Directon 10-01-2021 T4 FREE DIRECT 0.95 ng/dL Normal 0.76-1.46 [facility] Comment on above: Performed By: #### L 506.0400, L3100.5170, L3100.5125, L3300.1750, L3400.4800, L100.0500, L501.9520 #### [facility] [address] [place], [address] Thyroid Stim Hormone (TSH)on 10-01-2021 TSH 0.96 uIU/mL Normal 0.358-3.74 [facility] Comment on above: Performed By: #### L 506.0400, L3100.5170, L3100.5125, L3300.1750, L3400.4800, L100.0500, L501.9520 #### [facility] [address] [facility] [place], [place], [id number] [facility] EDMUND ATKINS ([id number]) 1990 F Date Time Provider Department 09/25/21 KRISTIE BRYANT [facility] During your visit today, we recorded the following information about you: Kristie Bryant PA-C 09/25/2021 11:20 AM Signed Let patient know her gonorrhea and chlamydia as well as urine culture are negative. Thania Andrea LPN 09/25/2021 12:04 PM Signed Patient notified of results, verbalizes understanding of instructions. hTania Andrea LPN Allergies As of Date: 09/25/2021 (Not on File) Date Reviewed: 09/24/2021 Reviewed by: Khushbu Person MA - Fully Assessed Reason for Visit: Results [95] Problem List As Of Date: 09/25/2021 (None) Encounter Status:Closed by KRISTIE BRYANT on 09/25/[address] [facility] Bacteria Ur Culton 2 Bacteria identified Cx Nom (U) CULTURE, URINE: No growth (<1,000 CFU/ml) Normal [facility] Comment on above: Performed By: #### 6 30-4 #### [facility] CLIA [id number] [address] [place] [address] [place] C trach+GC DNA Ur Ql JOCELYN+pro beon 09-24-2021 C. trachomatis+N. gonorrhoeae DNA JOCELYN+probe Ql (U) GC AMPLIFICATION: Negative for Neisseria gonorrhoeae by amplification CHLAMYDIA AMPLIFICATION: Negative for Chlamydia trachomatis by amplification Normal [facility] Comment on above: Performed By: #### 4 4806-8 #### [facility] CLIA [id number] [address] [place] [address] [place] CNOVon 09-24-2021 CNOV Office Visit ([facility] ) EDMUND ATKINS ([id number]) 1990 F Date Time Provider Department 09/24/21 9:00 AM NAYELY LOPEZ [facility] During your visit today, we recorded the following information about you: Temperature Pulse Respiration Blood pressure 99.3 degrees 108/minute 21/minute 122/74 Weight 81.6 kg Nayely Lopez APRN.CNP 09/24/2021 10:15 AM Signed This note was created using NoteWriter. Subjective Edmund Atkins is a 31 year old female who presents with shooting suprapubic pain and lower back pain following sexual intercourse as well as sensation of incomplete bladder emptying x 2 months.LMP 09/24/2021, periods are regular with no changes in menstrual habits. Patient notes increased cramping and heavy bleeding with last period which is not typical for her. Patient is sexually active with solely - does have history of interaction with other sexual partners. Patient was last tested for STIs and hatch-negative per pt. , uses family planning method for contraception. No use of barrier or hormonal methods. Review of Systems Constitutional: Negative for chills, fatigue and fever. HENT: Negative. Respiratory: Negative for cough, chest tightness and shortness of breath. Cardiovascular: Negative for chest pain and palpitations. Gastrointestinal: Positive for abdominal distention and abdominal pain. Negative for constipation, diarrhea, nausea and vomiting. Genitourinary: Positive for difficulty urinating, dyspareunia, pelvic pain and vaginal pain. Negative for flank pain, frequency, genital sores, hematuria, menstrual problem, urgency, vaginal bleeding and vaginal discharge. Sensation of incomplete bladder emptying Musculoskeletal: Positive for back pain and myalgias. Skin: Negative for color change, rash and wound. Neurological: Negative. Objective BP 122/74 Pulse 108 Temp 37.4 ?C (99.3 ?F) Resp 21 Wt 81.6 kg (179 lb 12.8 oz) SpO2 100% No past medical history on file. No past surgical history on file. ALLERGIES Patient has no allergy information on record. MEDICATIONS No prescriptions on file. No family history on file. Social History Tobacco Use - Smoking status: Not on file - Smokeless tobacco: Not on file Substance Use Topics - Alcohol use: Not on file - Drug use: Not on file Physical Exam Vitals reviewed. Constitutional: General: She is not in acute distress. Appearance: Normal appearance. She is not ill-appearing. HENT: Head: Normocephalic and atraumatic. Eyes: General: No scleral icterus. Cardiovascular: Rate and Rhythm: Normal rate. Pulmonary: Effort: Pulmonary effort is normal. Abdominal: General: Bowel sounds are normal. There is no distension. Palpations: Abdomen is soft. There is no mass. Tenderness: There is abdominal tenderness in the suprapubic area and left lower quadrant. There is no right CVA tenderness, left CVA tenderness or rebound. Musculoskeletal: Cervical back: Normal range of motion and neck supple. Skin: General: Skin is warm and dry. Coloration: Skin is not jaundiced or pale. Findings: No rash. Neurological: General: No focal deficit present. Mental Status: She is alert and oriented to person, place, and time. Mental status is at baseline. Psychiatric: Mood and Affect: Mood normal. Behavior: Behavior normal. Assessment and Plan ASSESSMENT/PLAN: 1. Dyspareunia in female - ICD9: 625.0, ICD10: N94.10 (primary diagnosis) - Follow-up with OBGYN next week - UA DIP, URINE (POC) - URINE CULTURE - GC/CHLAMYDIA AMPLIF, URINE - HCG QUAL UR B/O 2. Pelvic pain - ICD9: [id number], ICD10: R10.2 Differential Diagnosis includes Ovarian cyst, PID, endometriosis, pelvic floor dysfunction - GC/CHLAMYDIA AMPLIF, URINE - HCG QUAL UR B/O- negative in office. - Patient has appointment with [facility] next week. She is offered a vaginal exam today and declines-notes current period. Primarily wanted to rule out UTI today and will follow up with [facility] for further evaluation. Eleazar Arreguin RN - Follow-up with your PCP in 3-5 days if symptoms have not improved or sooner if symptoms worsen - Discussed red flags and need for immediate medical evaluation if any occur. - Discussed supportive care treatment with fluids, rest and analgesia. - Discussed expected course of illness TEACHING PROVIDER (Physician/PA/METER RECORD CLERK) NOTE OF PERSONAL INVOLVEMENT IN CARE: I have personally seen and examined the patient and performed the medical decision-making components. I have reviewed the Advanced Practice Registered Nurse (METER RECORD CLERK) Student's documentation and verified the findings in the note as written. Any additions or changes are noted in bold/italics. Signature: Nayely Lopez Date: 09/24/2021 Time: 10:13 AM Eleazar Rodríguez 09/24/2021 9:45 AM Signed Avoid intercourse if painful until follow up with OBG (more content not included)... Normal [facility] CBC Auto Differentialon 08- Basophils (Bld) [#/Vol] 0.06 10*3/uL [place] Basophils/100 WBC (Bld) 0.9 % 0 - 2 % [place] Eosinophils (Bld) [#/Vol] 0.13 10*3/uL [place] Eosinophils/100 WBC (Bld) 1.9 % 0 - 6 % [place] Erythrocyte distribution width (RBC) [Ratio] 12.6 fL 11.5 - 15 fL [place] Hematocrit (Bld) [Volume fraction] 43.2 % 34 - 48 % [place] Hemoglobin (Bld) [Mass/Vol] 14.0 g/dL 11.5 - 15.5 g/dL [place] Immature granulocytes (Bld) [#/Vol] 0.02 10*3/uL E9/L [place] Immature granulocytes/100 WBC (Bld) 0.3 % 0 - 5 % [place] Lymphocytes (Bld) [#/Vol] 2.36 10*3/uL [place] Lymphocytes/100 WBC (Bld) 34.2 % 20 - 42 % [place] MCH (RBC) [Entitic mass] 29.7 pg 26 - 35 pg [place] MCHC (RBC) [Mass/Vol] 32.4 % 32 - 34.5 % [place] MCV (RBC) [Entitic vol] 91.7 fL 80 - 99.9 fL [place] Monocytes (Bld) [#/Vol] 0.47 10*3/uL [place] Monocytes/100 WBC (Bld) 6.8 % 2 - 12 % [place] Neutrophils Absolute 3.86 [place] Neutrophils/100 WBC (Bld) 55.9 % 43 - 80 % [place] Platelet mean volume (Bld) [Entitic vol] 10.2 fL 7 - 12 fL [place] Platelets (Bld) [#/Vol] 232 10*3/uL [place] RBC (Bld) [#/Vol] 4.71 10*6/uL [place] WBC (Bld) [#/Vol] 6.9 10*3/uL [place] CBC With Platelet and Differ entialon 02-19-2020 Abs Imm Granulocytes 0.02 E9/L Normal [facility] Basophils (Bld) [#/Vol] 0.06 E9/L Normal 0.00-0.20 [facility] Basophils/100 WBC (Bld) 0.9 % Normal 0.0-2.0 [facility] Eosinophils (Bld) [#/Vol] 0.13 E9/L Normal 0.05-0.50 [facility] Eosinophils/100 WBC (Bld) 1.9 % Normal 0.0-6.0 [facility] Erythrocyte distribution width (RBC) [Ratio] 12.6 fL Normal 11.5-15.0 [facility] Hematocrit (Bld) [Volume fraction] 43.2 % Normal 34.0-48.0 [facility] Hemoglobin (Bld) [Mass/Vol] 14.0 g/dL Normal 11.5-15.5 [facility] Imm Granulocytes 0.3 % Normal 0.0-5.0 [facility] Lymphocytes (Bld) [#/Vol] 2.36 E9/L Normal 1.50-4.00 [facility] Lymphocytes/100 WBC (Bld) 34.2 % Normal 20.0-42.0 [facility] MCH (RBC) [Entitic mass] 29.7 pg Normal 26.0-35.0 [facility] MCHC (RBC) [Mass/Vol] 32.4 % Normal 32.0-34.5 [facility] MCV (RBC) [Entitic vol] 91.7 fL Normal 80.0-99.9 [facility] Monocytes (Bld) [#/Vol] 0.47 E9/L Normal 0.10-0.95 [facility] Monocytes/100 WBC (Bld) 6.8 % Normal 2.0-12.0 [facility] Neutrophils (Bld) [#/Vol] 3.86 E9/L Normal 1.80-7.30 [facility] Neutrophils/100 WBC (Bld) 55.9 % Normal 43.0-80.0 [facility] Platelet mean volume (Bld) [Entitic vol] 10.2 fL Normal 7.0-12.0 [facility] Platelets (Bld) [#/Vol] 232 E9/L Normal 130-450 [facility] RBC (Bld) [#/Vol] 4.71 E12/L Normal 3.50-5.50 [facility] WBC (Bld) [#/Vol] 6.9 E9/L Normal 4.5-11.5 [facility] Comprehensive Metabolic Pane damon 02-19-2020 Albumin [Mass/Vol] 4.6 g/dL Normal 3.5-5.2 [facility] ALP [Catalytic activity/Vol] 45 U/L Normal 35-104 [facility] ALT [Catalytic activity/Vol] 12 U/L Normal 0-32 [facility] Anion gap [Moles/Vol] 14 mmol/L Normal 7-16 [facility] AST [Catalytic activity/Vol] 15 U/L Normal 0-31 [facility] Bilirubin [Mass/Vol] 0.4 mg/dL Normal 0.0-1.2 [facility] Calcium [Mass/Vol] 9.8 mg/dL Normal 8.6-10.2 [facility] Chloride [Moles/Vol] 103 mmol/L Normal 98-107 [facility] CO2 [Moles/Vol] 22 mmol/L Normal 22-29 [facility] Creatinine [Mass/Vol] 0.8 mg/dL Normal 0.5-1.0 [facility] GFR/1.73 sq M predicted among blacks MDRD (S/P/Bld) [Vol rate/Area] mL/min/{1.73_m2} Normal [facility] GFR/1.73 sq M predicted among non-blacks MDRD (S/P/Bld) [Vol rate/Area] mL/min/{1.73_m2} Normal >=60 [facility] Comment on above: Result Comment: Director [employer] [place] Kidney Disease: less than 60 ml/min/1.73 sq.m. Kidney Failure: less than 15 ml/min/1.73 sq.m. Results valid for patients 18 years and older. Glucose [Mass/Vol] 95 mg/dL Normal 74-99 [facility] Potassium [Moles/Vol] 4.5 mmol/L Normal 3.5-5.0 [facility] Protein [Mass/Vol] 7.2 g/dL Normal 6.4-8.3 [facility] Sodium [Moles/Vol] 139 mmol/L Normal 132-146 [facility] Urea nitrogen [Mass/Vol] 12 mg/dL Normal 6-20 [facility] Albumin [Mass/Vol] 4.6 g/dL 3.5 - 5.2 g/dL [place] ALP [Catalytic activity/Vol] 45 U/L 35 - 104 U/L [place] ALT [Catalytic activity/Vol] 12 U/L 0 - 32 U/L [place] Anion gap [Moles/Vol] 14 mmol/L 7 - 16 mmol/L [place] AST [Catalytic activity/Vol] 15 U/L 0 - 31 U/L [place] Bilirubin Ql (U) 0.4 mg/dL 0 - 1.2 mg/dL [place] Calcium [Mass/Vol] 9.8 mg/dL 8.6 - 10.2 mg/dL [place] Chloride [Moles/Vol] 103 mmol/L 98 - 107 mmol/L [place] CO2 [Moles/Vol] 22 mmol/L 22 - 29 mmol/L [place] Creatinine [Mass/Vol] 0.8 mg/dL 0.5 - 1 mg/dL [place] GFR >60 [place] GFR Non- >60 >=60 mL/min/1.73 [place] Comment on above: Chronic Kidney Disea se: less than 60 ml/min/1.73 sq.m. Kidney Failure: less than 15 ml/min/1.73 sq.m. Results valid for patients 18 years and older. Glucose [Mass/Vol] 95 mg/dL 74 - 99 mg/dL [place] Potassium [Moles/Vol] 4.5 mmol/L 3.5 - 5 mmol/L [place] Protein [Mass/Vol] 7.2 g/dL 6.4 - 8.3 g/dL [place] Sodium [Moles/Vol] 139 mmol/L 132 - 146 mmol/L [place] Urea nitrogen [Mass/Vol] 12 mg/dL 6 - 20 mg/dL [place] XR foot RT min 3Von 04-10-20 XR foot RT min 3V [facility] [address] [place] [address] XRay Report Signed Patient: EDMUND ATKINS MR#: [id number] : 1990 Acct:[id number] Age/Sex: 29 / F Admit Date: 04/09/19 Loc: ER Attending Dr: Ordering Physician: Karthikeyan Castro MD Date of Service: 04/09/19 Procedure(s): XR foot RT min 3V Accession Number(s): [id number] cc: HISTORY: Infection. PHYSICIAN INDICATIONS: Injury TECHNIQUE: AP, lateral and oblique views. FINDINGS: There is normal bony alignment. No acute fracture or dislocation is noted. No soft tissue swelling is present. No cortex destruction or periosteal reaction to suggest osteomyelitis. No radiopaque foreign bodies are identified. IMPRESSION: Right foot: 1. Unremarkable. No evidence of radiopaque foreign body or osteomyelitis. Clinical follow-up suggested. Dictated By: Beau Rg MD DD/ 0609 Signed By: Beau Rg MD 04/10/19 0609 Legal Research Analyst: CINDY Normal [facility] ([place]) HCG SERUM,QUALITATIVEon 05-0 HCG SERUM,QUALITATIVE Negative [facility] Comment on above: Performed By: #### H #### [address] [address] OPon 11-10-2018 MR OP Patient name: EDMUND ATKINS MR#: [id number] Location: [facility] Acc#: [id number] Admit Date: : 1990 Age: 28 Sex: F Dictated By: Bernardo Puente MD. Signing Physician: Bernardo Puente MD. DICTATED BY: Bernardo Puente M.D. SIGNING PHYSICIAN: DATE OF SERVICE: 11/10/2018 PREOPERATIVE DIAGNOSIS: Umbilical hernia. POSTOPERATIVE DIAGNOSIS: Umbilical hernia. PROCEDURE: Umbilical hernia repair without mesh. SURGEON: Bernardo Puente M.D. ANESTHESIA: General endotracheal. ESTIMATED BLOOD LOSS: Less than 10 mL. INDICATION FOR PROCEDURE: The patient is a 28-year-old thin female who has a ely painful umbilical hernia at her umbilicus. It sticks out whenever she exercises or just getting up and moving around and coughing. It is giving her pain. She would like to have it repaired. I recommended hernia repair in the operating room under general anesthesia. She agrees and gives consent. Presents to the operating today for the procedure. Preoperatively, the patient received IV antibiotics with DVT prophylaxis both chemical and mechanical. DESCRIPTION OF PROCEDURE: The patient was taken to the operative room on the dy of procedure, placed in supine position. General anesthesia applied and the abdomen was prepped with ChloraPrep and draped in usual manner. A 1% lidocaine used to anesthetize the skin and subcutaneous tissue over top of the umbilicus. A curvilinear incision made over the umbilicus. Electrocautery and blunt dissection used to dissect around the base of the umbilicus where the hernia was, the skin of the umbilicus away from the hernia sac. Trunk of the umbilicus and then carefully dissected with the electrocautery around the edges of the ectatic fascia were attached to the normal fascia. Once this was , there was a small peritoneal sac and a little bit of preperitoneal fat. I the connections to the umbilicus. I did not open the peritoneum. I was able to easily reduce the hernia sac back into the abdomen, dissected the preperitoneal space but because of her very small size and the small size of the hernia that she would be a good candidate for a primary suture repair. I did a transverse closure with a 0 PDS in a running fashion and then approximated the umbilicus back down to the fascia also with the 0 PDS and closed the subcutaneous tissue with 3-0 Monocryl and the skin with running subcuticular 4-0 Monocryl. A 0.5% Marcaine injected around the edges of the skin. Steri-Strips and tonsil sponge, 4 x 4 and an OpSite were placed over the incision. The patient proceeded without any complications, returned to recovery room in stable condition. PEDRO/HUDSON @ 10:00 @ 20:20 # [id number] Bernardo Puente M.D. Electronically Signed Date/Time: 11/11/18832 Electronically Signed Date/Time: 11/11/18832 [facility] 11-10-2018 PD.EDMUND FONTAINE [id number] Ordering physician: CHAZ GROSSMAN [facility] [id number] Attending physician: Zuleyka Gill 1990 28 DOS: Anesthesia Assessment - Procedure NPO since: 2299; 11/09/18 PreProcedure Diagnosis: umbilical hernia Surgeon: Kwame Procedure to be Performed: umbilical hernia repair - Anesthesia History Hx Anesthesia Reactions: No Risk Factors-PostOp Nausea/Vomiting: Female, Nonsmoker, Postoperative Opioids Delayed Emergence: No Difficulty with Intubation: No Resistant to medications: No - Surgical History Name of Surgery/Procedure: cyst removed from toung age 6 - Cardiovascular History Hx Cardiac Disorders: No Hx Hypertension: Yes (gestational) - Endocrine/ History Hx Endocrine Disorders: No Hx Genitourinary: No Hx Renal Disease: No Body Mass Index (BMI): 21.4 - Respiratory History Hx Respiratory Disorders: No - Stop Bang Assessment Do you snore loudly?: No Do you often feel tired, fatigued, or sleepy during the dayt: No Do you have or are you being treated for high blood pressure: No Are you obese/overweight-BMI more than 35kg?: No Is your neck circumference greater than 16 inches?: No Are you a male?: No Are you over 50 years old?: No Has anyone observed you stop breathing during your sleep?: No Stop Bang Score: 0 - GI Medical History Hx Gastrointestinal Disorders: No Hx Hepatitis: No Hx GERD: No - Musculoskelatal Disorders Hx Musculoskeletal Disorders: No Hx Back Pain: No - Neurological Disorders Hx Neurological Disorders: No Hx Migraines: Yes - Psych Medical History Hx Psychiatric Problems: No - Heme Medical History Hx Blood Disorders: No Hx Anemia: No - Other Medical History Hx Hospitalization: No Hx Cancer: No Hx Blood Transfusions: No Smoking Status: Never Smoker Hx Alcohol Use: No Recent URI: No LMP: 10/28/18 Is there any possibility you may be : No Are you : No - Peds History Pediatric History: Not Applicable - Assessment Heart Sounds: S1 S2 Breath Sounds: Clear Airway Maintained: Yes Pain Score: 0 Temperature (celsius): 36.6 C Pulse Rate: 79 Respiratory Rate: 16 O2 Sat by Pulse Oximetry: 100 Blood Pressure: 126/81 Height: 1.73 m Weight (kg): 63.957 kg - Airway MAL: 1 TMD: Greater than 3 Condition of Teeth: No Dental Problems ROM neck: Full - Anesthesia Plan of Care ASA Class: ASA 2 Anesthesia Type: GETA VAP: If any of the above risk factors are selected Hi-Lo Endotracheal Tubes will be considered and preoperative oral care will be completed. Arterial Line: No Central Line: No Type of Block Anesthesia: None Post Op Pain Control: Parental IM/IV - Anesthesia Notes Anesthesia Notes: Yes Anesthesia Consult: Complete Active Medications: Bupivacaine HCl/Epinephrine Bitart (Sensorcaine W/Epinephrine) 30 ml LOCAL PRN PRN PRN Reason: OTILIO Stop: 12/10/18 05:59 Sodium Chloride (0.9% Nacl Irrigation) 1,000 mls @ 1,000 mls/hr IRR .Q1H PRN PRN Reason: PRN Stop: 12/10/18 05:59 Sodium Chloride (0.9% Nacl) 3,000 mls @ 3,000 mls/hr IRR .Q1H PRN PRN Reason: PRN Stop: 12/10/18 05:59 Lactated Ringer's (Lr) 1,000 mls @ 10 mls/hr IV CONTINUOUS WHITLEY Stop: 12/10/18 05:59 Last Admin: 11/10/18 07:49 Dose: 10 mls/hr Documented by: Lidocaine/Epinephrine (Xylocaine 1% Epi 1:100,000 30ml) 60 ml INJ PRN PRN PRN Reason: OTILIO Stop: 12/10/18 05:59 Lidocaine/Epinephrine (Xylocaine 1% Epi 1:100,000 20ml) 40 ml INJ PRN PRN PRN Reason: SURGERY Stop: 12/10/18 05:59 Non-Formulary Medication (Nozin) 1 ea T Q12HR WHITLEY Stop: 12/10/18 20:59 Scopolamine (Transderm Scop) 1 patch TD Q72HR WHITLEY Stop: 12/10/18 05:59 Last Admin: 11/10/18 07:51 Dose: 1 patch Documented by: Sodium Chloride (0.9% Nacl Irrigation) 1,000 ml IRR CONTINUOUS PRN PRN Reason: PRN Stop: 12/10/18 05:59 Sterile Water (Sterile Water Irrigation) 1,000 ml IRR CONTINUOUS PRN PRN Reason: PRN Stop: 12/10/18 05:59 Home Medications: Naproxen 500 mg PO DAILY PRN 10/24/18 [Confirmed 10/24/18] 11/10/18 06:55 Serum HCG, Qual Negative Allergies: Penicillins Allergy (Severe, Verified 10/24/18 10:45) SOB 11/10/18 0811 Dictated By: Yaw Mohamud DO Electronically Signed Date/Time: 11/10/18 08 [facility] POST.ANon 11-10-2018 POST.AN EDMUND ATKINS [id number] Ordering physician: CHAZ FIGUEROA [id number] Attending physician: Zuleyka Gill 1990 28 DOS: Anesthesia Postop Note - Post Anesthesia Complications: No Patient Orientation: Person, Place, Time Cardiopulmonary Status stable?: Yes 11/10/18 120 Dictated By: Yaw Mohamud DO Electronically Signed Date/Time: 11/10/18 1205 Normal [facility] Encounters Encounter Date Encounter Type Care Provider Facility Start: 09-21-2022 ambulatory Health Risk Assessment Facility:[facility] Start: 10-01-2021 End: 10-02-2021 ambulatory No Primary Care Physician Facility:[facility] Start: 10-01-2021 End: 10-01-2021 Patient encounter procedure [facility], [place] 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 [facility] Start: 02-19-2020 End: 02-22-2020 Patient encounter procedure STEPHANIA NOLASCO [facility] Start: 02-19-2020 End: 02-21-2020 Subsequent hospital visit by physician Stephania [facility] Comment on above: Lymphadenopathy of h ead and neck Start: 04-09-2019 End: 04-10-2019 Emergency department patient visit Karthikeyan Castro Facility:[facility] Start: 11-10-2018 Patient encounter procedure Bernardo Puente Facility:[facility] Start: 10-19-2018 End: 11-10-2018 Patient encounter procedure Bernardo Puente Facility:[facility] Procedures Date Procedure Procedure Detail Performing Clinician Start: 02-19-2020 Blood count complete auto&auto difrntl wbc STEPHANIA NOLASCO Start: 02-19-2020 Comprehensive metabo lic panel STEPHANIA NOLASCO Start: 02-19-2020 Blood count complete auto&auto difrntl wbc Stephania Nolasco Work Phone: Start: 02-19-2020 Comprehensive metabo lic panel Stephania Nolasco Work Phone: Plan of Treatment Date Care Activity Detail Author Start: 03-11-2020 Influenza vaccination Flu vaccine (# 1) [place], [place] Start: 03-10-2020 End: 03-10-2020 Office Visit 03/10/2020 Office Visit Primary Care Stephania Nolasco, [address] [place] [address] [phone] [facility] Start: 2011 Screening for malign ant neoplasm of cervix Cervical cancer screen [place], [place] Start: 2009 DTaP/Tdap/Td vaccine (1 - Tdap) DTaP/Tdap/Td vaccine (1 - Tdap) [place], [place] Start: 2005 HIV screening HIV screen [place], [place] Start: 1991 Varicella vaccine (1 of 2 - 2-dose childhood series) Varicella vaccine (1 of 2 - 2-dose childhood series) [place], [place] Payers Date Payer Category Payer Unknown [id number] 2019 Private Health Insurance [id number] 2018 Self-pay 2018 Unknown [id number] 1990 Unknown [id number] Unknown [id number] .16.8 [id number] Unknown [id number] .16.8 [id number] Unknown [id number] [id number] Unknown [id number] .16.8 [id number] Unknown [id number] .16.8 [id number] Social History Date Type Detail Facility never a smoker [facility] Start: 02-19-[facility] [place] [place] Start: 02-19-2020 [facility] and exposure [facility] Start: 02-19-2020 [facility] Start: 1990 Sex Assigned At Female Ganesh [facility] Work Phone: Progress note 10-14-2021 Note Date & Type Note Facility 10-14-2021 Note HNO ID: [id number] Author: Tamra Beasley APRN.DONOR SERVICES MANAGER Service: ? Author Type: Nurse Practitioner Type: Progress Notes Filed: 10/14/2021 9:01 AM Note Text: Subjective HPI Nontoxic-appearing female presents urgent care chief complaint possible sinus infection. Duration of symptoms 8 to 9 days. Associated symptoms sinus pressure sinus headache nonproductive cough. Patient states she contributes nonproductive cough to postnasal drip. Has will cough over the last few days. States initially sinus pressure was improving slightly and worsened again a few days ago. Has been using Sudafed this has helped some. Denies any known sick contacts. Denies any significant pain. Did take a negative COVID-19 test at home today. Denies any fever body aches chills productive cough chest pain shortness of breath pleuritic pain hemoptysis nausea vomiting abdominal pain or change in bowel or bladder habits. Past medical history prescription medication use allergies reviewed. Denies chance of is not breast-feeding. .Patient presents with: Nasal Congestion: cough, chest congestion, DORADO, x1 week History reviewed. No pertinent past medical history. History reviewed. No pertinent surgical history. ALLERGIES Patient has no known allergies. MEDICATIONS No prescriptions on file. History reviewed. No pertinent family history. Social History Tobacco Use - Smoking status: Never Smoker - Smokeless tobacco: Never Used Substance Use Topics - Alcohol use: Not on file - Drug use: Not on file BP 130/78 Pulse 102 Temp 37 ?C (98.6 ?F) Resp 20 Wt 83.1 kg (183 lb 3.2 oz) SpO2 99% hr 83 Review of Systems Constitutional: Negative for chills, fever and malaise/fatigue. HENT: Positive for congestion and sinus pain. Negative for ear discharge, ear pain and sore throat. Eyes: Negative for blurred vision, pain, discharge and redness. Respiratory: Positive for cough. Negative for hemoptysis, sputum production, shortness of breath, wheezing and stridor. Cardiovascular: Negative for chest pain. Gastrointestinal: Negative for abdominal pain, diarrhea, nausea and vomiting. Musculoskeletal: Negative for myalgias. Skin: Negative for itching and rash. Neurological: Positive for headaches. Negative for dizziness. Objective Physical Exam Vitals and nursing note reviewed. Constitutional: General: She is not in acute distress. Appearance: She is not diaphoretic. HENT: Head: Normocephalic and atraumatic. Jaw: No trismus. Right Ear: Hearing, tympanic membrane, ear canal and external ear normal. No decreased hearing noted. No drainage, swelling or tenderness. Tympanic membrane is not perforated, erythematous or bulging. Left Ear: Hearing, tympanic membrane, ear canal and external ear normal. No decreased hearing noted. No drainage, swelling or tenderness. Tympanic membrane is not perforated, erythematous or bulging. Nose: Right Sinus: Maxillary sinus tenderness present. Left Sinus: Maxillary sinus tenderness present. Mouth/Throat: Pharynx: Uvula midline. No oropharyngeal exudate, posterior oropharyngeal erythema or uvula swelling. Tonsils: No tonsillar abscesses. Eyes: General: Right eye: No discharge. Left eye: No discharge. Conjunctiva/sclera: Conjunctivae normal. Pupils: Pupils are equal, round, and reactive to light. Cardiovascular: Rate and Rhythm: Normal rate and regular rhythm. Heart sounds: Normal heart sounds. Pulmonary: Effort: Pulmonary effort is normal. No respiratory distress. Breath sounds: Normal breath sounds. No stridor. No wheezing, rhonchi or rales. Chest: Chest wall: No tenderness. Abdominal: Palpations: Abdomen is soft. Tenderness: There is no abdominal tenderness. Musculoskeletal: General: No tenderness. Normal range of motion. Cervical back: Normal range of motion and neck supple. Lymphadenopathy: Head: Right side of head: No submental, submandibular, tonsillar, preauricular, posterior auricular or occipital adenopathy. Left side of head: No submental, submandibular, tonsillar, preauricular, posterior auricular or occipital adenopathy. Cervical: No cervical adenopathy. Right cervical: No superficial or posterior cervical adenopathy. Left cervical: No superficial or posterior cervical adenopathy. Skin: General: Skin is warm and dry. Findings: No rash. Neurological: Mental Status: She is alert and oriented to person, place, and time. ASSESSMENT/PLAN: 1. Acute maxillary sinusitis, recurrence not specified - ICD9: 461.0, ICD10: J01.00 Patient diagnosed with maxillary sinusitis. Patiently placed on doxycycline. Patient was educated on supportive therapies. Patient will follow up with primary care provider as needed. Patient was instructed to immediately proceed to emergency room for any new, worsening, or symptoms lasting longer than anticipated. The patient's clinical presentation is otherwise unremarkable at t (more content not included)... [facility] Progress note 09-24-2021 Note Date & Type Note Facility 09-24-2021 Note HNO ID: [id number] Author: Nayely Lopez APRN.DONOR SERVICES MANAGER Service: ? Author Type: Nurse Practitioner Type: Progress Notes Filed: 09/24/2021 10:15 AM Note Text: This note was created using Nursing Home Quality[employer]. Subjective Edmund Atkins is a 31 year old female who presents with shooting suprapubic pain and lower back pain following sexual intercourse as well as sensation of incomplete bladder emptying x 2 months.LMP 09/24/2021, periods are regular with no changes in menstrual habits. Patient notes increased cramping and heavy bleeding with last period which is not typical for her. Patient is sexually active with solely - does have history of interaction with other sexual partners. Patient was last tested for STIs and hatch-negative per pt. , uses family planning method for contraception. No use of barrier or hormonal methods. Review of Systems Constitutional: Negative for chills, fatigue and fever. HENT: Negative. Respiratory: Negative for cough, chest tightness and shortness of breath. Cardiovascular: Negative for chest pain and palpitations. Gastrointestinal: Positive for abdominal distention and abdominal pain. Negative for constipation, diarrhea, nausea and vomiting. Genitourinary: Positive for difficulty urinating, dyspareunia, pelvic pain and vaginal pain. Negative for flank pain, frequency, genital sores, hematuria, menstrual problem, urgency, vaginal bleeding and vaginal discharge. Sensation of incomplete bladder emptying Musculoskeletal: Positive for back pain and myalgias. Skin: Negative for color change, rash and wound. Neurological: Negative. Objective BP 122/74 Pulse 108 Temp 37.4 ?C (99.3 ?F) Resp 21 Wt 81.6 kg (179 lb 12.8 oz) SpO2 100% No past medical history on file. No past surgical history on file. ALLERGIES Patient has no allergy information on record. MEDICATIONS No prescriptions on file. No family history on file. Social History Tobacco Use - Smoking status: Not on file - Smokeless tobacco: Not on file Substance Use Topics - Alcohol use: Not on file - Drug use: Not on file Physical Exam Vitals reviewed. Constitutional: General: She is not in acute distress. Appearance: Normal appearance. She is not ill-appearing. HENT: Head: Normocephalic and atraumatic. Eyes: General: No scleral icterus. Cardiovascular: Rate and Rhythm: Normal rate. Pulmonary: Effort: Pulmonary effort is normal. Abdominal: General: Bowel sounds are normal. There is no distension. Palpations: Abdomen is soft. There is no mass. Tenderness: There is abdominal tenderness in the suprapubic area and left lower quadrant. There is no right CVA tenderness, left CVA tenderness or rebound. Musculoskeletal: Cervical back: Normal range of motion and neck supple. Skin: General: Skin is warm and dry. Coloration: Skin is not jaundiced or pale. Findings: No rash. Neurological: General: No focal deficit present. Mental Status: She is alert and oriented to person, place, and time. Mental status is at baseline. Psychiatric: Mood and Affect: Mood normal. Behavior: Behavior normal. Assessment and Plan ASSESSMENT/PLAN: 1. Dyspareunia in female - ICD9: 625.0, ICD10: N94.10 (primary diagnosis) - Follow-up with OBGYN next week - UA DIP, URINE (POC) - URINE CULTURE - GC/CHLAMYDIA AMPLIF, URINE - HCG QUAL UR B/O 2. Pelvic pain - ICD9: [id number], ICD10: R10.2 Differential Diagnosis includes Ovarian cyst, PID, endometriosis, pelvic floor dysfunction - GC/CHLAMYDIA AMPLIF, URINE - HCG QUAL UR B/O- negative in office. - Patient has appointment with OUTSIDE SALES CONSULTANT next week. She is offered a vaginal exam today and declines-notes current period. Primarily wanted to rule out UTI today and will follow up with OUTSIDE SALES CONSULTANT for further evaluation. Eleazar Arreguin RN - Follow-up with your PCP in 3-5 days if symptoms have not improved or sooner if symptoms worsen - Discussed red flags and need for immediate medical evaluation if any occur. - Discussed supportive care treatment with fluids, rest and analgesia. - Discussed expected course of illness TEACHING PROVIDER (Physician/PA/METER RECORD CLERK) NOTE OF PERSONAL INVOLVEMENT IN CARE: I have personally seen and examined the patient and performed the medical decision-making components. I have reviewed the Advanced Practice Registered Nurse (METER RECORD CLERK) Student's documentation and verified the findings in the note as written. Any additions or changes are noted in bold/italics. Signature: Nayely Lopez Date: 09/24/2021 Time: 10:[address] [facility] Evaluation note Note Date & Type Note Facility Evaluation note No assessment information availa [facility] Work Phone: Hospital Course Discharge Summary No Discharge Summary Informa tion Discharge Instructions Discharge Instructions No Discharge Instructions Summary Purpose Family History No Family History Records FoundNo Family History Records FoundNo Family History Records FoundNo Family History Records FoundNo Family History Records Found Advance Directives No Advanced Directives Records FoundDocuments on File Type Date Recorded Patient Sanitation Director Expl anation Advance Directives and Living Will Power of Mobility Manager Assessments Diagnosis Lymphadenopathy of head and neck Chief Complaint and Reason for Visit Chief Complaint PELVIC PAIN Additional Source Comments INFORMATION SOURCE (unrecogn ized section and content) DATE CREATED AUTHOR 11/28/2018 [facility] DATE CREATED AUTHOR AUTHOR'S ORGANIZ ATION 04/13/2019 [facility] DATE CREATED AUTHOR AUTHOR'S ORGANIZ ATION 02/22/2020 [facility] DATE CREATED AUTHOR AUTHOR'S ORGANIZ ATION 10/16/[address] [facility] DATE CREATED AUTHOR AUTHOR'S ORGANIZ ATION 09/23/2022 [facility] Goals (unrecognized section and content) Goals may be documented in a n alternate section FOR RECORDS PERTAINING TO PATIENTS WHO ARE OR HAVE BEEN ENROLLED IN A CHEMICAL DEPENDENCY/SUBSTANCEABUSE PROGRAM, SOME INFORMATION MAY BE OMITTED. This clinical summary was aggregated from multiple sources. Caution should be exercised in using it in the provision of clinical care. This summary normalizes information from multiple sources, and as a consequence, information in this document may materially change the coding, format and clinical context of patient data. In addition, data may be omitted in some cases. CLINICAL DECISIONS SHOULD BE BASED ON THE PRIMARY CLINICAL RECORDS. [facility]. provides no warranty or guarantee of the accuracy or completeness of information in this document.
[2025-06-23 13:47] VITALS: BP 167/89; PULSE 91; RESP 20; TEMP 36.7; O2SAT 100
--- OUTSIDE RECORDS SUMMARY | 2025-06-23 14:06 | XMS RPT_ITS | CCD ---
Author Organization [facility] Inform ion Partnership [facility] Care Team Providers Care Briar Cutter Name Role Phone Unavailable Unavailable Unavailable Bernardo Puente Primary Care Unavailable Zuleyka Gill N.P. Attending Bernardo Noguera Attending Unavailable Bernardo Puente Primary Care Unavailable Karthikeyan Castro Attending Unavailable Stephania Nolasco Primary Care Provider STEPHANIA NOLASCO Referring Unavailable STEPHANIA NOLASCO Primary Care Unavailable Assessment, Health Risk Referring Unavaila ble Assessment, Health Risk Attending Unavaila ble Care Physician, No Primary Primary Care Unava ilable Care Physician, No Primary Primary Care Unava ilJesus Walter Referring Unavailable Jesus Villagomez Attending Unavailable Allergies Allergy Classification Reported Allergen(s) Allergy Type Date of Onset Reaction(s) Facility (2 sources) erythromycin; Translations: [Erythromycin] Drug Allergy [facility] (2 sources) medroxyPROGESTERo ne; Translations: [Depo-Provera] Drug Allergy [facility] (5 sources) Penicillins; Translations: [Penicillins] drug allergy 04-21-2017 [facility] Medications Current Medications Medication Drug Class(es) Dates [...] Completed docusate sodium 50 mg / sennosides, long-term 8.6 mg oral tablet (2 sources) take 1 tablet by mouth every twenty-four hours as needed Docusate Sodium 50 MG / sennosides, [facility] 8.6 MG Oral Tablet [Nolvia-Colace Reformulated Aug [...] tablet Every day PRN Oral Active PNV#75-iron [id number] (2 sources) End: 10-26-2015 take 1 tablet [...] Ab, IgG 33.0 AU/mL Normal Immune >10.9 [facility] Comment on above: Result Comment: Nega tive <9.0 Equivocal 9.0 - 10.9 Positive >10.9 A positive result generally indicates past exposure to Mumps virus or previous vaccination. Performed By: #### L 506.0400, L3100.5170, L3100.5125, L3300.1750, L3400.4800, L100.0500, L501.9520 #### [facility] [address] [place], [address] [facility] EMP Rubeola Titeron 03-1 RUBEOLA Ab, IgG > 300.0 Normal Immune >16.4 [facility] Comment on above: Result Comment: Nega tive <13.5 Equivocal 13.5 - 16.4 Positive >16.4 Presence of antibodies to Rubeola is presumptive evidence of immunity except when acute infection is suspected. Performed at: [address] [id number] Mill Operator: Priyank Lemon PhD, Phone: [phone] Performed By: #### L 506.0400, L3100.5170, L3100.5125, L3300.1750, L3400.4800, L100.0500, L501.9520 #### [facility] [address] [place], [address] Hepatitis B Surf AB - EMPon 09-21-2022 HEP B Surf Ab Reactive Normal [facility] Comment on above: Result Comment: Non Reactive: Inconsistent with immunity less than <10 mIU/mL Reactive: Consistent with immunity greater than or equal to 10 mIU/mL Performed By: #### L 3400.1750, L3100.0539, L3100.3400, L509.4015 #### [facility] [address] [place], [address] Rubella IgG [facility] EMPLOYEEon 0 09-21-2022 Rubella IgG Reactive Normal Nonreactive [facility] Comment on above: Result Comment: Anti body Results Interpretation of Immune Status Non Reactive Presumed Non-Immune Equivocal Equivocal Reactive Presumed Immune Performed By: #### L 3400.1750, L3100.0539, L3100.3400, L509.4015 #### [facility] [place], [address] CNOVon 10-14-2021 CNOV Office Visit ([facility] ) EDMUND ATKINS ([id number]) 1990 F Date Time Provider Department 10/14/21 8:30 AM TAMRA BEASLEY [facility] During your visit today, we recorded the following information about you: Temperature Pulse Respiration Blood pressure 98.6 degrees 102/minute 20/minute 130/78 Weight 83.1 kg Tamra Beasley APRN.[employer]ER [employer] 10/14/2021 9:01 AM Signed Subjective HPI Nontoxic-appearing [...] was educated (more content not included)... Normal [facility] PAP I-G w/rfx hrHPV-Aptimaon 10-10-2021 ADEQ Comment Normal . [facility] Comment on above: Order Comment: CYTOL OGY INFORMATION: - CLINICAL INFORMATION: ANNUAL - Non - DATE LMP/MENOPAUSE: 814857 LMP - COLLECTION VIAL: Thin Prep Vial - MACHINIST MATE SOURCE: CERVICAL/ENDOCERVICAL - COLLECTION TECHNIQUE: BRUSH/SPATULA Specimen Comment: [id number] Specimen Comment: No. of containers..01 ThinPrep Vial Result Comment: Sati sfactory for evaluation. Endocervical and/or squamous metaplastic cells (endocervical component) are present. Performed By: #### L 7400.0353 #### [facility] [place], [address] COMMENT Comment Normal . [facility] Comment on above: Order Comment: CYTOL OGY INFORMATION: - CLINICAL INFORMATION: ANNUAL - Non - DATE LMP/MENOPAUSE: 246809 LMP - COLLECTION VIAL: Thin Prep Vial - MACHINIST MATE SOURCE: CERVICAL/ENDOCERVICAL - COLLECTION TECHNIQUE: BRUSH/SPATULA Specimen Comment: [id number] Specimen Comment: No. of containers..01 ThinPrep Vial Result Comment: This liquid based ThinPrep(R) pap test was screened with the use of an image guided system. Performed By: #### L 7400.0353 #### [facility] [address] [place], [place], [address] DIAG Comment Abnormal . [facility] Comment on above: Order Comment: CYTOL OGY INFORMATION: - CLINICAL INFORMATION: ANNUAL - Non - DATE LMP/MENOPAUSE: 463466 LMP - COLLECTION VIAL: Thin Prep Vial - MACHINIST MATE SOURCE: CERVICAL/ENDOCERVICAL - COLLECTION TECHNIQUE: BRUSH/SPATULA Specimen Comment: [id number] Specimen Comment: No. of containers..01 ThinPrep Vial Result Comment: EPIT HELIAL CELL ABNORMALITY. ATYPICAL SQUAMOUS CELLS OF UNDETERMINED SIGNIFICANCE (ASC-US). Performed By: #### L 7400.0353 #### [facility] [address] [place], [address] HPV APTIMA, HR Negative Normal Negative [facility] Comment on above: Order Comment: CYTOL OGY INFORMATION: - CLINICAL INFORMATION: ANNUAL - Non - DATE LMP/MENOPAUSE: 3160812 LMP - COLLECTION VIAL: Thin Prep Vial - MACHINIST MATE SOURCE: CERVICAL/ENDOCERVICAL - COLLECTION TECHNIQUE: BRUSH/SPATULA Specimen Comment: [id number] Specimen Comment: No. of containers..01 ThinPrep Vial Result Comment: This nucleic acid amplification test detects fourteen high- risk HPV types (16,18,31,33,35,39,45,51,52,56,58,59,66,68) without differentiation. Performed at: - [address] [id number] Mill Operator: Yahaira Ng MD, Phone: [phone] Performed at: = - [facility] [id number] Mill Operator: Yahaira Ng MD, Phone: [phone] Performed By: #### L 7400.0353 #### [facility] [address] [place], [place], [address] HPV RFLX Comment Normal . [facility] Comment on above: Order Comment: CYTOL OGY INFORMATION: - CLINICAL INFORMATION: ANNUAL - Non - DATE LMP/MENOPAUSE: 842753 LMP - COLLECTION VIAL: Thin Prep Vial - MACHINIST MATE SOURCE: CERVICAL/ENDOCERVICAL - COLLECTION TECHNIQUE: BRUSH/SPATULA Specimen Comment: [id number] Specimen Comment: No. of containers..01 ThinPrep Vial Result Comment: See below for HPV testing results. Performed By: #### L 7400.0353 #### [facility] [address] [place], [place], [address] PAPSMR Comment Normal . [facility] Comment on above: Order Comment: CYTOL OGY INFORMATION: - CLINICAL INFORMATION: ANNUAL - Non - DATE LMP/MENOPAUSE: 857107 LMP - COLLECTION VIAL: Thin Prep Vial - MACHINIST MATE SOURCE: CERVICAL/ENDOCERVICAL - COLLECTION TECHNIQUE: BRUSH/SPATULA Specimen Comment: [id number] Specimen Comment: No. of containers..01 ThinPrep Vial Result Comment: The Pap smear is a screening test designed to aid in the detection of premalignant and malignant conditions of the uterine cervix. It is not a diagnostic procedure and should not be used as the sole means of detecting cervical cancer. Both false-positive and false-negative reports do occur. Performed By: #### L 7400.0353 #### [facility] [address] [place], [address] Path.prov.IDC-9 Comment Normal . [facility] Comment on above: Order Comment: CYTOL OGY INFORMATION: - CLINICAL INFORMATION: ANNUAL - Non - DATE LMP/MENOPAUSE: 199005 LMP - COLLECTION VIAL: Thin Prep Vial - MACHINIST MATE SOURCE: CERVICAL/ENDOCERVICAL - COLLECTION TECHNIQUE: BRUSH/SPATULA Specimen Comment: [id number] Specimen Comment: No. of containers..01 ThinPrep Vial Result Comment: [id number] Performed By: #### L 7400.0353 #### [facility] [address] [place], [place], [address] PERFORM Comment Normal . [facility] Comment on above: Order Comment: CYTOL OGY INFORMATION: - CLINICAL INFORMATION: ANNUAL - Non - DATE LMP/MENOPAUSE: 332198 LMP - COLLECTION VIAL: Thin Prep Vial - MACHINIST MATE SOURCE: CERVICAL/ENDOCERVICAL - COLLECTION TECHNIQUE: BRUSH/SPATULA Specimen Comment: [id number] Specimen Comment: No. of containers..01 ThinPrep Vial Result Comment: Ana Rebollar, Core Winder Machine Operator (ASCP) Performed By: #### L 7400.0353 #### [facility] [address] [place], [address] RECOMM Comment Abnormal . [facility] Comment on above: Order Comment: CYTOL OGY INFORMATION: - CLINICAL INFORMATION: ANNUAL - Non - DATE LMP/MENOPAUSE: 883274 LMP - COLLECTION VIAL: Thin Prep Vial - MACHINIST MATE SOURCE: CERVICAL/ENDOCERVICAL - COLLECTION TECHNIQUE: BRUSH/SPATULA Specimen Comment: [id number] Specimen Comment: No. of containers..01 ThinPrep Vial Result Comment: Sugg est follow up as clinically appropriate. Performed By: #### L 7400.0353 #### [facility] [address] [place], [address] SIGN Comment Normal . [facility] Comment on above: Order Comment: CYTOL OGY INFORMATION: - CLINICAL INFORMATION: ANNUAL - Non - DATE LMP/MENOPAUSE: 626093 LMP - COLLECTION VIAL: Thin Prep Vial - MACHINIST MATE SOURCE: CERVICAL/ENDOCERVICAL - COLLECTION TECHNIQUE: BRUSH/SPATULA Specimen Comment: [id number] Specimen Comment: No. of containers..01 ThinPrep Vial Result Comment: Susie Pacheco MD, Pathologist Performed By: #### L 7400.0353 #### [facility] [address] [place], [place], [address] COMM . Normal . [facility] Comment on above: Order Comment: CYTOL OGY INFORMATION: - CLINICAL INFORMATION: ANNUAL - Non - DATE LMP/MENOPAUSE: 077327 LMP - COLLECTION VIAL: Thin Prep Vial - MACHINIST MATE SOURCE: CERVICAL/ENDOCERVICAL - COLLECTION TECHNIQUE: BRUSH/SPATULA Specimen Comment: [id number] Specimen Comment: No. of containers..01 ThinPrep Vial Performed By: #### L 7400.0353 #### [facility] [address] [place], [place], [address] Testosterone Freeon 10-05-19 22 TESTOSTER FREE 2.3 pg/mL Normal 0.0-4.2 [facility] Comment on above: Result Comment: Perf ormed at: [facility] [id number] Mill Operator: Anya Kim MD, Phone: [phone] Performed By: #### L 506.0400, L3100.5170, L3100.5125, L3300.1750, L3400.4800, L100.0500, L501.9520 #### [facility] [address] [place], [place], [address] Basophil percentageon 2021 WBC (Bld) [#/Vol] 6.1 10*3/uL 4.4-11.0 [facility] Work Phone: Blood erythrocytes count (nu mber/volume)on 10-01-2021 RBC (Bld) [#/Vol] 4.67 10*6/uL 4.2-5.4 [facility] Work Phone: Blood hemoglobin measurement (mass/volume)on 10-01-2021 Hemoglobin (Bld) [Mass/Vol] 14.3 g/dL 12.0-15.0 [facility] Work Phone: Blood platelet mean volumeon 10-01-2021 Platelet mean volume (Bld) [Entitic vol] 9.4 fL 6.2-12.0 [facility] Work Phone: CBC-Complete Blood Cnt No Di ffon 10-01-2021 Erythrocyte distribution width (RBC) [Ratio] 12.4 % Normal 11.6-14.6 [facility] Comment on above: Performed By: #### L 506.0400, L3100.5170, L3100.5125, L3300.1750, L3400.4800, L100.0500, L501.9520 #### [facility] [address] [place], [address] Hematocrit (Bld) [Volume fraction] 40.6 % Normal 37-47 [facility] Comment on above: Performed By: #### L 506.0400, L3100.5170, L3100.5125, L3300.1750, L3400.4800, L100.0500, L501.9520 #### [facility] [address] [place], [address] Hemoglobin (Bld) [Mass/Vol] 14.3 g/dL Normal 12.0-15.0 [facility] Comment on above: Performed By: #### L 506.0400, L3100.5170, L3100.5125, L3300.1750, L3400.4800, L100.0500, L501.9520 #### [facility] [address] [place], [address] MCH (RBC) [Entitic mass] 30.6 pg Normal 27.0-32.0 [facility] Comment on above: Performed By: #### L 506.0400, L3100.5170, L3100.5125, L3300.1750, L3400.4800, L100.0500, L501.9520 #### [facility] [address] [place], [address] MCHC (RBC) [Mass/Vol] 35.2 g/dL Normal 32-36 [facility] Comment on above: Performed By: #### L 506.0400, L3100.5170, L3100.5125, L3300.1750, L3400.4800, L100.0500, L501.9520 #### [facility] [address] [place], [address] MCV (RBC) [Entitic vol] 86.9 fL Normal 81-99 [facility] Comment on above: Performed By: #### L 506.0400, L3100.5170, L3100.5125, L3300.1750, L3400.4800, L100.0500, L501.9520 #### [facility] [address] [place], [address] Platelet mean volume (Bld) [Entitic vol] 9.4 fL Normal 6.2-12.0 [facility] Comment on above: Performed By: #### L 506.0400, L3100.5170, L3100.5125, L3300.1750, L3400.4800, L100.0500, L501.9520 #### [facility] [address] [place], [address] Platelets (Bld) [#/Vol] 295 10*3/uL Normal 150-450 [facility] Comment on above: Performed By: #### L 506.0400, L3100.5170, L3100.5125, L3300.1750, L3400.4800, L100.0500, L501.9520 #### [facility] [address] [place], [address] RBC (Bld) [#/Vol] 4.67 10*6/uL Normal 4.2-5.4 [facility] Comment on above: Performed By: #### L 506.0400, L3100.5170, L3100.5125, L3300.1750, L3400.4800, L100.0500, L501.9520 #### [facility] [address] [place], [address] RDW SD 39.4 fl Normal 35.1-43.9 [facility] Comment on above: Performed By: #### L 506.0400, L3100.5170, L3100.5125, L3300.1750, L3400.4800, L100.0500, L501.9520 #### [facility] [address] [place], [address] WBC (Bld) [#/Vol] 6.1 10*3/uL Normal 4.4-11.0 [facility] Comment on above: Performed By: #### L 506.0400, L3100.5170, L3100.5125, L3300.1750, L3400.4800, L100.0500, L501.9520 #### [facility] [address] [place], [place], [address] Determination of erythrocyte mean corpuscular volume (MCV)on 10-01-2021 MCV (RBC) [Entitic vol] 86.9 fL 81-99 [facility] Work Phone: Estradiolon 10-01-2021 ESTRADIOL 111.8 pg/mL Normal [facility] Comment on above: Result Comment: NORM AL [...] L3100.5170, L3100.5125, L3300.1750, L3400.4800, L100.0500, L501.9520 #### [facility] [address] [place], [place], [address] Follicle Stimulating Hormone on 10-01-2021 FSH 5.0 mIU/mL Normal [facility] Comment on above: Result Comment: NORMAL REFERENCE RANGES FEMALE FOLLICULAR 2.3 - 12.6 mIU/mL MID-CYCLE PEAK 5.2 - 17.5 mIU/mL LUTEAL 1.7 - 12.9 mIU/mL POST-MENOPAUSAL ON MHT 5.9 - 72.8 mIU/mL NOT ON MHT 12.7 - 132.2 mlU/mL MALE 0.7 - 10.8 mIU/mL Performed By: #### L 506.0400, L3100.5170, L3100.5125, L3300.1750, L3400.4800, L100.0500, L501.9520 #### [facility] [address] [place], [place], [address] Hematocrit Auto (Bld) [Volum e fraction]on 10-01-2021 Hematocrit (Bld) [Volume fraction] 40.6 % 37-47 [facility] Work Phone: Laboratory - Chemistry and C hemistry - challengeon 10-01-2021 Free T4 [Mass/Vol] 0.95 ng/dL 0.76-1.46 [facility] Work Phone: Laboratory - Hematology and Cell countson 10-01-2021 Erythrocyte distribution width (RBC) [Entitic vol] 39.4 fL 35.1-43.9 [facility] Work Phone: Erythrocyte distribution width (RBC) [Ratio] 12.4 % 11.6-14.6 [facility] Work Phone: MCH (RBC) [Entitic mass] 30.6 pg 27.0-32.0 [facility] Work Phone: Luteinizing Hormoneon 2021 LH 4.6 mIU/mL Normal [facility] Comment on above: Result Comment: NORMAL REFERENCE RANGES FEMALE FOLLICULAR 1.9 - 26.2 mIU/mL MID-CYCLE PEAK 22.8 - 76.1 mIU/mL LUTEAL 0.6 - 16.6 mIU/mL POST-MENOPAUSAL ON MHT 1.1 - 52.4 mIU/mL NOT ON MHT 8.6 - 61.8 mIU/mL MALE 1.2 - 10.6 mIU/mL Performed By: #### L 506.0400, L3100.5170, L3100.5125, L3300.1750, L3400.4800, L100.0500, L501.9520 #### [facility] [address] [place], [place], [address] MCHC Auto (RBC) [Mass/Vol]on 10-01-2021 MCHC (RBC) [Mass/Vol] 35.2 g/dL 32-36 [facility] Work Phone: No Panel Informationon 10-01 Follicle Stimulating Hormone 5.0 mIU/mL [facility] Work Phone: Comment on above: NORMAL REFERENCE RAN GES FEMALE FOLLICULAR 2.3 - 12.6 mIU/mL MID-CYCLE PEAK 5.2 - 17.5 mIU/mL LUTEAL 1.7 - 12.9 mIU/mL POST-MENOPAUSAL ON MHT 5.9 - 72.8 mIU/mL NOT ON MHT 12.7 - 132.2 mlU/mL MALE 0.7 - 10.8 mIU/mL Luteinizing Hormone 4.6 mIU/mL [facility] Work Phone: Comment on above: NORMAL REFERENCE RAN GES FEMALE FOLLICULAR 1.9 - 26.2 mIU/mL MID-CYCLE PEAK 22.8 - 76.1 mIU/mL LUTEAL 0.6 - 16.6 mIU/mL POST-MENOPAUSAL ON MHT 1.1 - 52.4 mIU/mL NOT ON MHT 8.6 - 61.8 mIU/mL MALE 1.2 - 10.6 mIU/mL Thyroid Stimulating Hormone (TSH) 0.96 uIU/mL 0.358-3.74 [facility] Work Phone: Platelets bldon 10-01-2021 Platelets (Bld) [#/Vol] 295 10*3/uL 150-450 [facility] Work Phone: Serum or plasma estradiol (E 2) measurement (mass/volume)on 10-01-2021 E2 [Mass/Vol] 111.8 pg/mL [facility] Work Phone: Comment on above: NORMAL REFERENCE [...] (mass/volume)on 10-01-2021 Testosterone Free [Mass/Vol] 2.3 pg/mL [facility] Work Phone: Comment on above: Performed at: [address] [id number] Director: Anya Kim MD, Phone: [phone] T4 Free Directon 10-01-2021 T4 FREE DIRECT 0.95 ng/dL Normal 0.76-1.46 [facility] Comment on above: Performed By: #### L 506.0400, L3100.5170, L3100.5125, L3300.1750, L3400.4800, L100.0500, L501.9520 #### [facility] [address] [facility] [place], [address] Thyroid Stim Hormone (TSH)on 10-01-2021 TSH 0.96 uIU/mL Normal 0.358-3.74 [facility] Comment on above: Performed By: #### L 506.0400, L3100.5170, L3100.5125, L3300.1750, L3400.4800, L100.0500, L501.9520 #### [facility] [address] [facility] [facility] [place], [place], [address] [facility] CNPN Telephone ([facility]) EDMUND ATKINS ([id number]) 1990 F Date Time Provider Department 09/25/21 KRISTIE BRYANT [facility] During your visit today, we recorded the following information about you: Kristie Bryant PA-C 09/25/2021 11:20 AM Signed Let patient know her gonorrhea and chlamydia as well as urine culture are negative. Thania Andrea LPN 09/25/2021 12:04 PM Signed Patient notified of results, verbalizes understanding of instructions. Thania Andrea LPN Allergies As of Date: 09/25/2021 (Not on File) Date Reviewed: 09/24/2021 Reviewed by: Khushbu Person MA - Fully Assessed Reason for Visit: Results [95] Problem List As Of Date: 09/25/2021 (None) Encounter Status:Closed by KRISTIE BRYANT on 09/25/21 Normal [facility] Bacteria Ur Culton 2 Bacteria identified Cx Nom (U) CULTURE, URINE: No growth (<1,000 CFU/ml) Normal [facility] Comment on above: Performed By: #### 6 30-4 #### [facility] CLIA [id number] [address] [place] [address] [place] C trach+GC DNA Ur Ql JOCELYN+pro beon 09-24-2021 C. trachomatis+N. gonorrhoeae DNA JOCELYN+probe Ql (U) GC AMPLIFICATION: Negative for Neisseria gonorrhoeae by amplification CHLAMYDIA AMPLIFICATION: Negative for Chlamydia trachomatis by amplification Normal [facility] Comment on above: Performed By: #### 4 4806-8 #### [facility] CLIA [id number] [address] [place] [address] [place] CNOVon 09-24-2021 CNOV Office Visit (UCWSTR ) EDMUND ATKINS ([id number]) 1990 F Date Time Provider Department 09/24/21 [...] UR B/O 2. Pelvic pain - ICD9: [id number], ICD10: R10.2 Differential Diagnosis includes Ovarian cyst, PID, endometriosis, pelvic floor dysfunction - GC/CHLAMYDIA AMPLIF, URINE - HCG QUAL UR B/O- negative in office. - Patient has appointment with HEAD WORKER next week. She is offered a vaginal exam today and declines-notes current period. Primarily wanted to rule out UTI today and will follow up with HEAD WORKER for further evaluation. Eleazar Arreguin RN - Follow-up with your PCP in 3-5 days if symptoms have not improved or sooner if symptoms worsen - Discussed red flags and need for immediate medical evaluation if any occur. - Discussed supportive care treatment with fluids, rest and analgesia. - Discussed expected course of illness TEACHING PROVIDER (Physician/PA/WATER HAULER) NOTE OF PERSONAL INVOLVEMENT IN CARE: I have personally seen and examined the patient and performed the medical decision-making components. I have reviewed the Advanced Practice Registered Nurse (WATER HAULER) Student's documentation and verified the findings in the note as written. Any additions or changes are noted in bold/italics. Signature: Nayely Lopez Date: 09/24/2021 Time: 10:13 AM Eleazar Rodríguez 09/24/2021 9:45 AM Signed Avoid intercourse if painful until follow up with OBG (more content not included)... Normal [facility] CBC Auto Differentialon 08- Basophils (Bld) [#/Vol] 0.06 10*3/uL [place] Basophils/100 WBC (Bld) 0.9 % 0 - 2 % [place] Eosinophils (Bld) [#/Vol] 0.13 10*3/uL [place] Eosinophils/100 WBC (Bld) 1.9 % 0 - 6 % [place] Erythrocyte distribution width (RBC) [Ratio] 12.6 fL 11.5 - 15 fL [place] Hematocrit (Bld) [Volume fraction] 43.2 % 34 - 48 % [place] Hemoglobin (Bld) [Mass/Vol] 14.0 g/dL 11.5 - 15.5 g/dL [place] Immature granulocytes (Bld) [#/Vol] 0.02 10*3/uL E9/L [place] Immature granulocytes/100 WBC (Bld) 0.3 % 0 - 5 % [place] Lymphocytes (Bld) [#/Vol] 2.36 10*3/uL [place] Lymphocytes/100 WBC (Bld) 34.2 % 20 - 42 % [place] MCH (RBC) [Entitic mass] 29.7 pg 26 - 35 pg [place] MCHC (RBC) [Mass/Vol] 32.4 % 32 - 34.5 % [place] MCV (RBC) [Entitic vol] 91.7 fL 80 - 99.9 fL [place] Monocytes (Bld) [#/Vol] 0.47 10*3/uL [place] Monocytes/100 WBC (Bld) 6.8 % 2 - 12 % [place] Neutrophils Absolute 3.86 [place] Neutrophils/100 WBC (Bld) 55.9 % 43 - 80 % [place] Platelet mean volume (Bld) [Entitic vol] 10.2 fL 7 - 12 fL [place] Platelets (Bld) [#/Vol] 232 10*3/uL [place] RBC (Bld) [#/Vol] 4.71 10*6/uL [place] WBC (Bld) [#/Vol] 6.9 10*3/uL [place] CBC With Platelet and Differ entialon 02-19-2020 Abs Imm Granulocytes 0.02 E9/L Normal [facility] Basophils (Bld) [#/Vol] 0.06 E9/L Normal 0.00-0.20 [facility] Basophils/100 WBC (Bld) 0.9 % Normal 0.0-2.0 [facility] Eosinophils (Bld) [#/Vol] 0.13 E9/L Normal 0.05-0.50 [facility] Eosinophils/100 WBC (Bld) 1.9 % Normal 0.0-6.0 [facility] Erythrocyte distribution width (RBC) [Ratio] 12.6 fL Normal 11.5-15.0 [facility] Hematocrit (Bld) [Volume fraction] 43.2 % Normal 34.0-48.0 [facility] Hemoglobin (Bld) [Mass/Vol] 14.0 g/dL Normal 11.5-15.5 [facility] Imm Granulocytes 0.3 % Normal 0.0-5.0 [facility] Lymphocytes (Bld) [#/Vol] 2.36 E9/L Normal 1.50-4.00 [facility] Lymphocytes/100 WBC (Bld) 34.2 % Normal 20.0-42.0 [facility] MCH (RBC) [Entitic mass] 29.7 pg Normal 26.0-35.0 [facility] MCHC (RBC) [Mass/Vol] 32.4 % Normal 32.0-34.5 [facility] MCV (RBC) [Entitic vol] 91.7 fL Normal 80.0-99.9 [facility] Monocytes (Bld) [#/Vol] 0.47 E9/L Normal 0.10-0.95 [facility] Monocytes/100 WBC (Bld) 6.8 % Normal 2.0-12.0 [facility] Neutrophils (Bld) [#/Vol] 3.86 E9/L Normal 1.80-7.30 [facility] Neutrophils/100 WBC (Bld) 55.9 % Normal 43.0-80.0 [facility] Platelet mean volume (Bld) [Entitic vol] 10.2 fL Normal 7.0-12.0 [facility] Platelets (Bld) [#/Vol] 232 E9/L Normal 130-450 [facility] RBC (Bld) [#/Vol] 4.71 E12/L Normal 3.50-5.50 [facility] WBC (Bld) [#/Vol] 6.9 E9/L Normal 4.5-11.5 [facility] Comprehensive Metabolic Pane damon 02-19-2020 Albumin [Mass/Vol] 4.6 g/dL Normal 3.5-5.2 [facility] ALP [Catalytic activity/Vol] 45 U/L Normal 35-104 [facility] ALT [Catalytic activity/Vol] 12 U/L Normal 0-32 [facility] Anion gap [Moles/Vol] 14 mmol/L Normal 7-16 [facility] AST [Catalytic activity/Vol] 15 U/L Normal 0-31 [facility] Bilirubin [Mass/Vol] 0.4 mg/dL Normal 0.0-1.2 [facility] Calcium [Mass/Vol] 9.8 mg/dL Normal 8.6-10.2 [facility] Chloride [Moles/Vol] 103 mmol/L Normal 98-107 [facility] CO2 [Moles/Vol] 22 mmol/L Normal 22-29 [facility] Creatinine [Mass/Vol] 0.8 mg/dL Normal 0.5-1.0 [facility] GFR/1.73 sq M predicted among blacks MDRD (S/P/Bld) [Vol rate/Area] mL/min/{1.73_m2} Normal [facility] GFR/1.73 sq M predicted among non-blacks MDRD (S/P/Bld) [Vol rate/Area] mL/min/{1.73_m2} Normal >=60 [facility] Comment on above: Result Comment: Blend Plant Operator [place] Kidney Disease: less than 60 ml/min/1.73 sq.m. Kidney Failure: less than 15 ml/min/1.73 sq.m. Results valid for patients 18 years and older. Glucose [Mass/Vol] 95 mg/dL Normal 74-99 [facility] Potassium [Moles/Vol] 4.5 mmol/L Normal 3.5-5.0 [facility] Protein [Mass/Vol] 7.2 g/dL Normal 6.4-8.3 [facility] Sodium [Moles/Vol] 139 mmol/L Normal 132-146 [facility] Urea nitrogen [Mass/Vol] 12 mg/dL Normal 6-20 [facility] Albumin [Mass/Vol] 4.6 g/dL 3.5 - 5.2 g/dL [place], [place] ALP [Catalytic activity/Vol] 45 U/L 35 - 104 U/L [place] ALT [Catalytic activity/Vol] 12 U/L 0 - 32 U/L [place] Anion gap [Moles/Vol] 14 mmol/L 7 - 16 mmol/L [place] AST [Catalytic activity/Vol] 15 U/L 0 - 31 U/L [place] Bilirubin Ql (U) 0.4 mg/dL 0 - 1.2 mg/dL [place] Calcium [Mass/Vol] 9.8 mg/dL 8.6 - 10.2 mg/dL [place] Chloride [Moles/Vol] 103 mmol/L 98 - 107 mmol/L [place] CO2 [Moles/Vol] 22 mmol/L 22 - 29 mmol/L [place] Creatinine [Mass/Vol] 0.8 mg/dL 0.5 - 1 mg/dL [place] GFR >60 [place] GFR Non- >60 >=60 mL/min/1.73 [place] Comment on above: Chronic Kidney Disea se: less than 60 ml/min/1.73 sq.m. Kidney Failure: less than 15 ml/min/1.73 sq.m. Results valid for patients 18 years and older. Glucose [Mass/Vol] 95 mg/dL 74 - 99 mg/dL [place], [place] Potassium [Moles/Vol] 4.5 mmol/L 3.5 - 5 mmol/L [place] Protein [Mass/Vol] 7.2 g/dL 6.4 - 8.3 g/dL [place] Sodium [Moles/Vol] 139 mmol/L 132 - 146 mmol/L [place] Urea nitrogen [Mass/Vol] 12 mg/dL 6 - 20 mg/dL [place] XR foot RT min 3Von 04-10-20 XR foot RT min [facility] [address] [place] [address] XRay Report Signed Patient: EDMUND ATKINS MR#: [id number] : 1990 Acct:[id number] Age/Sex: 29 / F Admit Date: 04/09/19 Loc: ER Attending Dr: Ordering Physician: Karthikeyan Castro MD Date of Service: 04/09/19 Procedure(s): XR foot RT min 3V Accession Number(s): [id number] cc: HISTORY: Infection. PHYSICIAN INDICATIONS: Injury TECHNIQUE: [...] Signed By: Beau Rg MD 04/10/19 0609 Fire Control Technician B: CINDY [facility] ([place]) HCG SERUM,QUALITATIVEon 05-0 HCG SERUM,QUALITATIVE Negative [facility] Comment on above: Performed By: #### H #### [address] [address] OPon 11-10-2018 MR OP Patient name: EDMUND ATKINS MR#: [id number] Location: [facility] Acc#: [id number] Admit Date: : 1990 Age: 28 Sex: [...] condition. PEDRO/HUDSON @ 10:00 @ 20:20 # [id number] Bernardo Puente M.D. Electronically Signed Date/Time: 11/11/18832 Electronically Signed Date/Time: 11/11/[address] [facility] 11-10-2018 PD.EDMUND FONTAINE [id number] Ordering physician: CHAZ GROSSMAN [facility] [id number] Attending physician: Zuleyka Gill 1990 28 DOS: [...] Non-Formulary Medication (Nozin) 1 ea T Q12HR WHTILEY Stop: 12/10/18 20:59 Scopolamine (Transderm Scop) 1 [...] Mohamud DO Electronically Signed Date/Time: 11/10/[address] [facility] POST.ANon 11-10-2018 POST.AN EDMUND ATKINS [id number] Ordering physician: CHAZ FIGUEROA [id number] Attending physician: Zuleyka Gill 1990 28 DOS: Anesthesia Postop Note - Post Anesthesia Complications: No Patient Orientation: Person, Place, Time Cardiopulmonary Status stable?: Yes 11/10/18 120 Dictated By: Yaw Mohamud DO Electronically Signed Date/Time: 11/10/18 1205 Normal [facility] Encounters Encounter Date Encounter Type Care Provider Facility Start: 09-21-2022 ambulatory Health Risk Assessment Facility:[facility] Start: 10-01-2021 End: 10-02-2021 ambulatory No Primary Care Physician Facility:[facility] Start: 10-01-2021 End: 10-01-2021 Patient encounter procedure [facility], [place] 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 Start: 02-19-2020 End: 02-22-2020 Patient encounter procedure STEPHANIA NOLASCO [facility] Start: 02-19-2020 End: 02-21-2020 Subsequent hospital visit by physician Stephania [facility] Comment on above: Lymphadenopathy of h ead and neck Start: 04-09-2019 End: 04-10-2019 Emergency department patient visit Karthikeyan Castro Facility:[facility] Start: 11-10-2018 Patient encounter procedure Bernardo Puente Facility:[facility] Start: 10-19-2018 End: 11-10-2018 Patient encounter procedure Bernardo Puente Facility:[facility] Procedures Date Procedure Procedure Detail Performing Clinician Start: 02-19-2020 Blood count complete auto&auto difrntl wbc STEPHANIA NOLASCO Start: 02-19-2020 Comprehensive metabo lic panel STEPHANIA NOLASCO Start: 02-19-2020 Blood count complete auto&auto difrntl wbc Stephania Nolasco Work Phone: Start: 02-19-2020 Comprehensive metabo lic panel Stephania Nolasco Work Phone: Plan of Treatment Date Care Activity Detail Author Start: 03-11-2020 Influenza vaccination Flu vaccine (# 1) [place], [place] Start: 03-10-2020 End: 03-10-2020 Office Visit 03/10/2020 Office Visit Primary Care Stephania Nolasco, [address] [place] [address] [phone] [facility] Start: 2011 Screening for malign ant neoplasm of cervix Cervical cancer screen [place], [place] Start: 2009 DTaP/Tdap/Td vaccine (1 - Tdap) DTaP/Tdap/Td vaccine (1 - Tdap) [place], [place] Start: 2005 HIV screening HIV screen [place], [place] Start: 1991 Varicella vaccine (1 of 2 - 2-dose childhood series) Varicella vaccine (1 of 2 - 2-dose childhood series) [place], [place] Payers Date Payer Category Payer Unknown [id number] 2019 Private Health Insurance [id number] 2018 Self-pay 2018 Unknown [id number] 1990 Unknown [id number] Unknown [id number] .16.8 [id number] Unknown [id number] .16.8 [id number] Unknown [id number] 2.16.84 [id number] Unknown [id number] .16.8 [id number] Unknown [id number] .16.8 [id number] Social History Date Type Detail Facility never a smoker [facility] Start: 02-19-2020 Tobacco smoking stat [email or web address]IS Never smoker [place] Start: 02-19-2020 [facility] Start: 02-19-2020 [facility] Start: 1990 Sex Assigned At Female Ganesh [facility] Work Phone: Progress note 10-14-2021 Note Date & Type Note Facility 10-14-2021 Note HNO ID: [id number] Author: Tamra Beasley APRN.[employer] Service: ? Author Type: Nurse Practitioner Type: [...] unremarkable at t (more content not included)... [facility] Progress note 09-24-2021 Note Date & Type Note Facility 09-24-2021 Note HNO ID: [id number] Author: Nayely Lopez APRN.[employer] Service: ? Author Type: Nurse Practitioner Type: Progress Notes Filed: 09/24/2021 10:15 AM Note Text: This note was created using [employer]. Subjective Edmund Atkins is a 31 year [...] UR B/O 2. Pelvic pain - ICD9: [id number], ICD10: R10.2 Differential Diagnosis includes Ovarian cyst, PID, endometriosis, pelvic floor dysfunction - GC/CHLAMYDIA AMPLIF, URINE - HCG QUAL UR B/O- negative in office. - Patient has appointment with HEAD WORKER next week. She is offered a vaginal exam today and declines-notes current period. Primarily wanted to rule out UTI today and will follow up with HEAD WORKER for further evaluation. Eleazar Arreguin RN - Follow-up with your PCP in 3-5 days if symptoms have not improved or sooner if symptoms worsen - Discussed red flags and need for immediate medical evaluation if any occur. - Discussed supportive care treatment with fluids, rest and analgesia. - Discussed expected course of illness TEACHING PROVIDER (Physician/PA/WATER HAULER) NOTE OF PERSONAL INVOLVEMENT IN CARE: I have personally seen and examined the patient and performed the medical decision-making components. I have reviewed the Advanced Practice Registered Nurse (WATER HAULER) Student's documentation and verified the findings in the note as written. Any additions or changes are noted in bold/italics. Signature: Nayely Lopez Date: 09/24/2021 Time: 10:13 AM [facility] Evaluation note Note Date & Type Note Facility Evaluation note No assessment information availa [facility] Work Phone: Hospital Course Discharge Summary No Discharge Summary Informa tion Discharge Instructions Discharge Instructions No Discharge Instructions Summary Purpose Family History No Family History Records FoundNo Family History Records FoundNo Family History Records FoundNo Family History Records FoundNo Family History Records Found Advance Directives No Advanced Directives Records FoundDocuments on File Type Date Recorded Patient Asset Management Coordinator Expl anation Advance Directives and Living Will Power of Window Repairer Assessments Diagnosis Lymphadenopathy of head and neck Chief Complaint and Reason for Visit Chief Complaint PELVIC PAIN Additional Source Comments INFORMATION SOURCE (unrecogn ized section and content) DATE CREATED AUTHOR 11/28/2018 [facility] DATE CREATED AUTHOR AUTHOR'S ORGANIZ ATION 04/13/2019 [facility] ([place]) DATE CREATED AUTHOR AUTHOR'S ORGANIZ ATION 02/22/2020 [facility] DATE CREATED AUTHOR AUTHOR'S ORGANIZ ATION 10/16/2021 [facility] DATE CREATED AUTHOR AUTHOR'S ORGANIZ ATION 09/23/2022 [facility] Goals (unrecognized section and content) Goals [...] BE BASED ON THE PRIMARY CLINICAL RECORDS. [facility] provides no warranty or guarantee of the accuracy or completeness of information in this document.
== END 2025-06-23 13:48 | disposition home or self-care (01) ==
LOC: ED 14:04
PROVIDERS: Visit Provider Student in an Organized Health Care Education/Training Program
DX: Z23 Encounter for immunization (principal)
CPT/HCPCS: 90675; 96372

== ENCOUNTER 2025-06-27 17:02 | Outpatient (CLI) | payer OTHER, SELFPAY ==
[2025-06-27 17:05] VITALS: BP 121/74; PULSE 80; RESP 14; TEMP 36.2; O2SAT 98
== END 2025-06-27 17:51 | disposition home or self-care (01) ==
LOC: ED 17:52
DX: Z23 Encounter for immunization (principal)
CPT/HCPCS: 90675; 96372

== ENCOUNTER → 2025-07-04 | Outpatient (CLI) | payer OTHER, SELFPAY ==
[2025-07-04 17:20] VITALS: BP 139/70; PULSE 116; RESP 18; TEMP 36.6; O2SAT 100
[2025-07-04 17:21] VITALS: TEMP 36.6; BMI 28.8
[2025-07-04 17:24] VITALS: BMI 28.8
--- OUTSIDE RECORDS SUMMARY | 2025-07-04 17:36 | XMS RPT_ITS | CCD ---
Author Organization [facility] Inform ion Partnership [facility] Care Team Providers Care Contracts Advisor Name Role Phone Unavailable Unavailable Unavailable Bernardo Puente Primary Care Unavailable Zuleyka Gill N.P. Attending Bernardo Noguera Attending Unavailable Bernardo Puente Primary Care Unavailable Karthikeyan Castro Attending Unavailable Stephania Nolasco Primary Care Provider [phone] STEPHANIA NOLASCO Referring Unavailable STEPHANIA NOLASCO Primary Care Unavailable Assessment, Health Risk Referring Unavaila ble Assessment, Health Risk Attending Unavaila ble Care Physician, No Primary Primary Care Unava ilable Care Physician, No Primary Primary Care Unava ilable Jesus Villagomez Referring Unavailable Jesus Villagomez Attending Unavailable Allergies Allergy Classification Reported Allergen(s) Allergy Type Date of Onset Reaction(s) Facility (2 sources) erythromycin; Translations: [Erythromycin] Drug Allergy [facility] (2 sources) medroxyPROGESTERo ne; Translations: [Depo-Provera] Drug Allergy [facility] (5 sources) Penicillins; Translations: [Penicillins] drug allergy 04-21-2017 [facility] Medications Current Medications Medication Drug Class(es) [...] Completed docusate sodium 50 mg / sennosides, [facility] 8.6 mg oral tablet (2 sources) take 1 tablet by mouth every twenty-four hours as needed Docusate Sodium 50 MG / sennosides, CUSTODIAL 8.6 MG Oral Tablet [Nolvia-Colace Reformulated Aug [...] tablet Every day PRN Oral Active PNV#75-iron [id number] (2 sources) End: 10-26-2015 take 1 tablet [...] Ab, IgG 33.0 AU/mL Normal Immune >10.9 [facility] Comment on above: Result Comment: Nega tive <9.0 Equivocal 9.0 - 10.9 Positive >10.9 A positive result generally indicates past exposure to Mumps virus or previous vaccination. Performed By: #### L 506.0400, L3100.5170, L3100.5125, L3300.1750, L3400.4800, L100.0500, L501.9520 #### [facility] [address] [place], [address] [facility] EMP Rubeola Titeron 03-1 RUBEOLA Ab, IgG > 300.0 Normal Immune >16.4 [facility] Comment on above: Result Comment: Nega tive <13.5 Equivocal 13.5 - 16.4 Positive >16.4 Presence of antibodies to Rubeola is presumptive evidence of immunity except when acute infection is suspected. Performed at: [address] [id number] Director Of Collections: Priyank Lemon PhD, Phone: [phone] Performed By: #### L 506.0400, L3100.5170, L3100.5125, L3300.1750, L3400.4800, L100.0500, L501.9520 #### [facility] [address] [place], [address] Hepatitis B Surf AB - EMPon 09-21-2022 HEP B Surf Ab Reactive Normal [facility] Comment on above: Result Comment: Non Reactive: Inconsistent with immunity less than <10 mIU/mL Reactive: Consistent with immunity greater than or equal to 10 mIU/mL Performed By: #### L 3400.1750, L3100.0539, L3100.3400, L509.4015 #### [facility] [address] [place], [address] Rubella IgG [facility] EMPLOYEEon 0 09-21-2022 Rubella IgG Reactive Normal Nonreactive [facility] Comment on above: Result Comment: Anti body Results Interpretation of Immune Status Non Reactive Presumed Non-Immune Equivocal Equivocal Reactive Presumed Immune Performed By: #### L 3400.1750, L3100.0539, L3100.3400, L509.4015 #### [facility] [place], [address] CNOVon 10-14-2021 CNOV Office Visit (UCWSTR ) EDMUND ATKINS ([id number]) 1990 F Date Time Provider Department 10/14/21 8:30 AM TAMRA BEASLEY [facility] During your visit today, we recorded the following information about you: Temperature Pulse Respiration Blood pressure 98.6 degrees 102/minute 20/minute 130/78 Weight 83.1 kg Tamra Beasley APRN.[employer] 10/14/2021 9:01 AM Signed Subjective HPI [...] was educated (more content not included)... Normal [facility] PAP I-G w/rfx hrHPV-Aptimaon 10-10-2021 ADEQ Comment Normal . [facility] Comment on above: Order Comment: CYTOL OGY INFORMATION: - CLINICAL INFORMATION: ANNUAL - Non - DATE LMP/MENOPAUSE: 995880 LMP - COLLECTION VIAL: Thin Prep Vial - BOX GLUER SOURCE: CERVICAL/ENDOCERVICAL - COLLECTION TECHNIQUE: BRUSH/SPATULA Specimen Comment: [id number] Specimen Comment: No. of containers..01 ThinPrep Vial Result Comment: Sati sfactory for evaluation. Endocervical and/or squamous metaplastic cells (endocervical component) are present. Performed By: #### L 7400.0353 #### [facility] [place], [address] COMMENT Comment Normal . [facility] Comment on above: Order Comment: CYTOL OGY INFORMATION: - CLINICAL INFORMATION: ANNUAL - Non - DATE LMP/MENOPAUSE: 564000 LMP - COLLECTION VIAL: Thin Prep Vial - BOX GLUER SOURCE: CERVICAL/ENDOCERVICAL - COLLECTION TECHNIQUE: BRUSH/SPATULA Specimen Comment: [id number] Specimen Comment: No. of containers..01 ThinPrep Vial Result Comment: This liquid based ThinPrep(R) pap test was screened with the use of an image guided system. Performed By: #### L 7400.0353 #### [facility] [address] [place], [place], [id number] DIAG Comment Abnormal . [facility] Comment on above: Order Comment: CYTOL OGY INFORMATION: - CLINICAL INFORMATION: ANNUAL - Non - DATE LMP/MENOPAUSE: 471242 LMP - COLLECTION VIAL: Thin Prep Vial - BOX GLUER SOURCE: CERVICAL/ENDOCERVICAL - COLLECTION TECHNIQUE: BRUSH/SPATULA Specimen Comment: [id number] Specimen Comment: No. of containers..01 ThinPrep Vial Result Comment: EPIT HELIAL CELL ABNORMALITY. ATYPICAL SQUAMOUS CELLS OF UNDETERMINED SIGNIFICANCE (ASC-US). Performed By: #### L 7400.0353 #### [facility] [address] [place] [place], [address] HPV APTIMA, HR Negative Normal Negative [facility] Comment on above: Order Comment: CYTOL OGY INFORMATION: - CLINICAL INFORMATION: ANNUAL - Non - DATE LMP/MENOPAUSE: 3160812 LMP - COLLECTION VIAL: Thin Prep Vial - BOX GLUER SOURCE: CERVICAL/ENDOCERVICAL - COLLECTION TECHNIQUE: BRUSH/SPATULA Specimen Comment: [id number] Specimen Comment: No. of containers..01 ThinPrep Vial Result Comment: This nucleic acid amplification test detects fourteen high- risk HPV types (16,18,31,33,35,39,45,51,52,56,58,59,66,68) without differentiation. Performed at: - [address] [id number] Director Of Collections: Yahaira Ng MD, Phone: [phone] Performed at: = - [facility] [id number] Director Of Collections: Yahaira Ng MD, Phone: [phone] Performed By: #### L 7400.0353 #### [facility] [address] [place], [place], [address] HPV RFLX Comment Normal . [facility] Comment on above: Order Comment: CYTOL OGY INFORMATION: - CLINICAL INFORMATION: ANNUAL - Non - DATE LMP/MENOPAUSE: 758433 LMP - COLLECTION VIAL: Thin Prep Vial - BOX GLUER SOURCE: CERVICAL/ENDOCERVICAL - COLLECTION TECHNIQUE: BRUSH/SPATULA Specimen Comment: [id number] Specimen Comment: No. of containers..01 ThinPrep Vial Result Comment: See below for HPV testing results. Performed By: #### L 7400.0353 #### [facility] [address] [place], [place], [address] PAPSMR Comment Normal . [facility] Comment on above: Order Comment: CYTOL OGY INFORMATION: - CLINICAL INFORMATION: ANNUAL - Non - DATE LMP/MENOPAUSE: 950258 LMP - COLLECTION VIAL: Thin Prep Vial - BOX GLUER SOURCE: CERVICAL/ENDOCERVICAL - COLLECTION TECHNIQUE: BRUSH/SPATULA Specimen Comment: [id number] Specimen Comment: No. of containers..01 ThinPrep Vial Result Comment: The Pap smear is a screening test designed to aid in the detection of premalignant and malignant conditions of the uterine cervix. It is not a diagnostic procedure and should not be used as the sole means of detecting cervical cancer. Both false-positive and false-negative reports do occur. Performed By: #### L 7400.0353 #### [facility] [address] [place], [address] Path.prov.IDC-9 Comment Normal . [facility] Comment on above: Order Comment: CYTOL OGY INFORMATION: - CLINICAL INFORMATION: ANNUAL - Non - DATE LMP/MENOPAUSE: 082471 LMP - COLLECTION VIAL: Thin Prep Vial - BOX GLUER SOURCE: CERVICAL/ENDOCERVICAL - COLLECTION TECHNIQUE: BRUSH/SPATULA Specimen Comment: [id number] Specimen Comment: No. of containers..01 ThinPrep Vial Result Comment: [id number] Performed By: #### L 7400.0353 #### [facility] [address] [place], [place], [address] PERFORM Comment Normal . [facility] Comment on above: Order Comment: CYTOL OGY INFORMATION: - CLINICAL INFORMATION: ANNUAL - Non - DATE LMP/MENOPAUSE: 244949 LMP - COLLECTION VIAL: Thin Prep Vial - BOX GLUER SOURCE: CERVICAL/ENDOCERVICAL - COLLECTION TECHNIQUE: BRUSH/SPATULA Specimen Comment: [id number] Specimen Comment: No. of containers..01 ThinPrep Vial Result Comment: Ana Rebollar, Duplicate Maker (ASCP) Performed By: #### L 7400.0353 #### [facility] [address] [place], [address] RECOMM Comment Abnormal . [facility] Comment on above: Order Comment: CYTOL OGY INFORMATION: - CLINICAL INFORMATION: ANNUAL - Non - DATE LMP/MENOPAUSE: 095880 LMP - COLLECTION VIAL: Thin Prep Vial - BOX GLUER SOURCE: CERVICAL/ENDOCERVICAL - COLLECTION TECHNIQUE: BRUSH/SPATULA Specimen Comment: [id number] Specimen Comment: No. of containers..01 ThinPrep Vial Result Comment: Sugg est follow up as clinically appropriate. Performed By: #### L 7400.0353 #### [facility] [address] [place], [address] SIGN Comment Normal . [facility] Comment on above: Order Comment: CYTOL OGY INFORMATION: - CLINICAL INFORMATION: ANNUAL - Non - DATE LMP/MENOPAUSE: 513708 LMP - COLLECTION VIAL: Thin Prep Vial - BOX GLUER SOURCE: CERVICAL/ENDOCERVICAL - COLLECTION TECHNIQUE: BRUSH/SPATULA Specimen Comment: [id number] Specimen Comment: No. of containers..01 ThinPrep Vial Result Comment: Susie Pacheco MD, Pathologist Performed By: #### L 7400.0353 #### [facility] [address] [place], [place], [address] COMM . Normal . [facility] Comment on above: Order Comment: CYTOL OGY INFORMATION: - CLINICAL INFORMATION: ANNUAL - Non - DATE LMP/MENOPAUSE: 817464 LMP - COLLECTION VIAL: Thin Prep Vial - BOX GLUER SOURCE: CERVICAL/ENDOCERVICAL - COLLECTION TECHNIQUE: BRUSH/SPATULA Specimen Comment: [id number] Specimen Comment: No. of containers..01 ThinPrep Vial Performed By: #### L 7400.0353 #### [facility] [address] [place], [place], [address] Testosterone Freeon 10-05-19 22 TESTOSTER FREE 2.3 pg/mL Normal 0.0-4.2 [facility] Comment on above: Result Comment: Perf ormed at: [facility] [id number] Director Of Collections: Anya Kim MD, Phone: [phone] Performed By: #### L 506.0400, L3100.5170, L3100.5125, L3300.1750, L3400.4800, L100.0500, L501.9520 #### [facility] [address] [place], [place], [address] Basophil percentageon 2021 WBC (Bld) [#/Vol] 6.1 10*3/uL 4.4-11.0 [facility] Work Phone: Blood erythrocytes count (nu mber/volume)on 10-01-2021 RBC (Bld) [#/Vol] 4.67 10*6/uL 4.2-5.4 [facility] Work Phone: Blood hemoglobin measurement (mass/volume)on 10-01-2021 Hemoglobin (Bld) [Mass/Vol] 14.3 g/dL 12.0-15.0 [facility] Work Phone: Blood platelet mean volumeon 10-01-2021 Platelet mean volume (Bld) [Entitic vol] 9.4 fL 6.2-12.0 [facility] Work Phone: CBC-Complete Blood Cnt No Di ffon 10-01-2021 Erythrocyte distribution width (RBC) [Ratio] 12.4 % Normal 11.6-14.6 [facility] Comment on above: Performed By: #### L 506.0400, L3100.5170, L3100.5125, L3300.1750, L3400.4800, L100.0500, L501.9520 #### [facility] [address] [place], [address] Hematocrit (Bld) [Volume fraction] 40.6 % Normal 37-47 [facility] Comment on above: Performed By: #### L 506.0400, L3100.5170, L3100.5125, L3300.1750, L3400.4800, L100.0500, L501.9520 #### [facility] [address] [place], [address] Hemoglobin (Bld) [Mass/Vol] 14.3 g/dL Normal 12.0-15.0 [facility] Comment on above: Performed By: #### L 506.0400, L3100.5170, L3100.5125, L3300.1750, L3400.4800, L100.0500, L501.9520 #### [facility] [address] [place], [address] MCH (RBC) [Entitic mass] 30.6 pg Normal 27.0-32.0 [facility] Comment on above: Performed By: #### L 506.0400, L3100.5170, L3100.5125, L3300.1750, L3400.4800, L100.0500, L501.9520 #### [facility] [address] [place], [address] MCHC (RBC) [Mass/Vol] 35.2 g/dL Normal 32-36 [facility] Comment on above: Performed By: #### L 506.0400, L3100.5170, L3100.5125, L3300.1750, L3400.4800, L100.0500, L501.9520 #### [facility] [address] [place], [address] MCV (RBC) [Entitic vol] 86.9 fL Normal 81-99 [facility] Comment on above: Performed By: #### L 506.0400, L3100.5170, L3100.5125, L3300.1750, L3400.4800, L100.0500, L501.9520 #### [facility] [address] [place], [address] Platelet mean volume (Bld) [Entitic vol] 9.4 fL Normal 6.2-12.0 [facility] Comment on above: Performed By: #### L 506.0400, L3100.5170, L3100.5125, L3300.1750, L3400.4800, L100.0500, L501.9520 #### [facility] [address] [place], [address] Platelets (Bld) [#/Vol] 295 10*3/uL Normal 150-450 [facility] Comment on above: Performed By: #### L 506.0400, L3100.5170, L3100.5125, L3300.1750, L3400.4800, L100.0500, L501.9520 #### [facility] [address] [place], [address] RBC (Bld) [#/Vol] 4.67 10*6/uL Normal 4.2-5.4 [facility] Comment on above: Performed By: #### L 506.0400, L3100.5170, L3100.5125, L3300.1750, L3400.4800, L100.0500, L501.9520 #### [facility] [address] [place], [address] RDW SD 39.4 fl Normal 35.1-43.9 [facility] Comment on above: Performed By: #### L 506.0400, L3100.5170, L3100.5125, L3300.1750, L3400.4800, L100.0500, L501.9520 #### [facility] [address] [place], [address] WBC (Bld) [#/Vol] 6.1 10*3/uL Normal 4.4-11.0 [facility] Comment on above: Performed By: #### L 506.0400, L3100.5170, L3100.5125, L3300.1750, L3400.4800, L100.0500, L501.9520 #### [facility] [address] [place], [place], [address] Determination of erythrocyte mean corpuscular volume (MCV)on 10-01-2021 MCV (RBC) [Entitic vol] 86.9 fL 81-99 [facility] Work Phone: Estradiolon 10-01-2021 ESTRADIOL 111.8 pg/mL Normal [facility] Comment on above: Result Comment: NORM [...] L3100.5170, L3100.5125, L3300.1750, L3400.4800, L100.0500, L501.9520 #### [facility] [address] [place], [place], [address] Follicle Stimulating Hormone on 10-01-2021 FSH 5.0 mIU/mL Normal [facility] Comment on above: Result Comment: NORMAL REFERENCE RANGES FEMALE FOLLICULAR 2.3 - 12.6 mIU/mL MID-CYCLE PEAK 5.2 - 17.5 mIU/mL LUTEAL 1.7 - 12.9 mIU/mL POST-MENOPAUSAL ON MHT 5.9 - 72.8 mIU/mL NOT ON MHT 12.7 - 132.2 mlU/mL MALE 0.7 - 10.8 mIU/mL Performed By: #### L 506.0400, L3100.5170, L3100.5125, L3300.1750, L3400.4800, L100.0500, L501.9520 #### [facility] [address] [place], [place], [address] Hematocrit Auto (Bld) [Volum e fraction]on 10-01-2021 Hematocrit (Bld) [Volume fraction] 40.6 % 37-47 [facility] Work Phone: Laboratory - Chemistry and C hemistry - challengeon 10-01-2021 Free T4 [Mass/Vol] 0.95 ng/dL 0.76-1.46 [facility] Work Phone: Laboratory - Hematology and Cell countson 10-01-2021 Erythrocyte distribution width (RBC) [Entitic vol] 39.4 fL 35.1-43.9 [facility] Work Phone: Erythrocyte distribution width (RBC) [Ratio] 12.4 % 11.6-14.6 [facility] Work Phone: MCH (RBC) [Entitic mass] 30.6 pg 27.0-32.0 [facility] Work Phone: Luteinizing Hormoneon 2021 LH 4.6 mIU/mL Normal [facility] Comment on above: Result Comment: NORMAL REFERENCE RANGES FEMALE FOLLICULAR 1.9 - 26.2 mIU/mL MID-CYCLE PEAK 22.8 - 76.1 mIU/mL LUTEAL 0.6 - 16.6 mIU/mL POST-MENOPAUSAL ON MHT 1.1 - 52.4 mIU/mL NOT ON MHT 8.6 - 61.8 mIU/mL MALE 1.2 - 10.6 mIU/mL Performed By: #### L 506.0400, L3100.5170, L3100.5125, L3300.1750, L3400.4800, L100.0500, L501.9520 #### [facility] [address] [place], [place], [address] MCHC Auto (RBC) [Mass/Vol]on 10-01-2021 MCHC (RBC) [Mass/Vol] 35.2 g/dL 32-36 [facility] Work Phone: No Panel Informationon 10-01 Follicle Stimulating Hormone 5.0 mIU/mL [facility] Work Phone: Comment on above: NORMAL REFERENCE RAN GES FEMALE FOLLICULAR 2.3 - 12.6 mIU/mL MID-CYCLE PEAK 5.2 - 17.5 mIU/mL LUTEAL 1.7 - 12.9 mIU/mL POST-MENOPAUSAL ON MHT 5.9 - 72.8 mIU/mL NOT ON MHT 12.7 - 132.2 mlU/mL MALE 0.7 - 10.8 mIU/mL Luteinizing Hormone 4.6 mIU/mL [facility] Work Phone: Comment on above: NORMAL REFERENCE RAN GES FEMALE FOLLICULAR 1.9 - 26.2 mIU/mL MID-CYCLE PEAK 22.8 - 76.1 mIU/mL LUTEAL 0.6 - 16.6 mIU/mL POST-MENOPAUSAL ON MHT 1.1 - 52.4 mIU/mL NOT ON MHT 8.6 - 61.8 mIU/mL MALE 1.2 - 10.6 mIU/mL Thyroid Stimulating Hormone (TSH) 0.96 uIU/mL 0.358-3.74 [facility] Work Phone: Platelets bldon 10-01-2021 Platelets (Bld) [#/Vol] 295 10*3/uL 150-450 [facility] Work Phone: Serum or plasma estradiol (E 2) measurement (mass/volume)on 10-01-2021 E2 [Mass/Vol] 111.8 pg/mL [facility] Work Phone: Comment on above: NORMAL [...] (mass/volume)on 10-01-2021 Testosterone Free [Mass/Vol] 2.3 pg/mL [facility] Work Phone: Comment on above: Performed at: [address] [id number] Director: Anya Kim MD, Phone: [phone] T4 Free Directon 10-01-2021 T4 FREE DIRECT 0.95 ng/dL Normal 0.76-1.46 [facility] Comment on above: Performed By: #### L 506.0400, L3100.5170, L3100.5125, L3300.1750, L3400.4800, L100.0500, L501.9520 #### [facility] [address] [facility] [place], [address] Thyroid Stim Hormone (TSH)on 10-01-2021 TSH 0.96 uIU/mL Normal 0.358-3.74 [facility] Comment on above: Performed By: #### L 506.0400, L3100.5170, L3100.5125, L3300.1750, L3400.4800, L100.0500, L501.9520 #### [facility] [address] [facility] [place], [place], [address] [facility] CNPN Telephone (UCWSTR) EDMUND ATKINS ([id number]) 1990 F Date Time Provider Department 09/25/21 [...] Status:Closed by KRISTIE BRYANT on 09/25/21 Normal [facility] Bacteria Ur Culton 2 Bacteria identified Cx Nom (U) CULTURE, URINE: No growth (<1,000 CFU/ml) Normal [facility] Comment on above: Performed By: #### 6 30-4 #### [facility] CLIA [id number] [address] [place] [address] [place] C trach+GC DNA Ur Ql JOCELYN+pro beon 09-24-2021 C. trachomatis+N. gonorrhoeae DNA JOCELYN+probe Ql (U) GC AMPLIFICATION: Negative for Neisseria gonorrhoeae by amplification CHLAMYDIA AMPLIFICATION: Negative for Chlamydia trachomatis by amplification Normal [facility] Comment on above: Performed By: #### 4 4806-8 #### [facility] CLIA [id number] [address] [place] [address] [place] CNOVon 09-24-2021 CNOV Office Visit (UCWSTR ) EDMUND ATKINS ([id number]) 1990 F Date Time Provider Department 09/24/21 [...] UR B/O 2. Pelvic pain - ICD9: [id number], ICD10: R10.2 Differential Diagnosis includes Ovarian cyst, PID, endometriosis, pelvic floor dysfunction - GC/CHLAMYDIA AMPLIF, URINE - HCG QUAL UR B/O- negative in office. - Patient has appointment with [facility] next week. She is offered a vaginal exam today and declines-notes current period. Primarily wanted to rule out UTI today and will follow up with [facility] for further evaluation. Eleazar Arreguin RN - Follow-up with your PCP in 3-5 days if symptoms have not improved or sooner if symptoms worsen - Discussed red flags and need for immediate medical evaluation if any occur. - Discussed supportive care treatment with fluids, rest and analgesia. - Discussed expected course of illness TEACHING PROVIDER (Physician/PA/SCALLOP RAKER) NOTE OF PERSONAL INVOLVEMENT IN CARE: I have personally seen and examined the patient and performed the medical decision-making components. I have reviewed the Advanced Practice Registered Nurse (SCALLOP RAKER) Student's documentation and verified the findings in the note as written. Any additions or changes are noted in bold/italics. Signature: Nayely Lopez Date: 09/24/2021 Time: 10:13 AM Eleazar Rodríguez 09/24/2021 9:45 AM Signed Avoid intercourse if painful until follow up with OBG (more content not included)... Normal [facility] CBC Auto Differentialon 08- Basophils (Bld) [#/Vol] 0.06 10*3/uL [employer] [place] Basophils/100 WBC (Bld) 0.9 % 0 - 2 % [employer] Eosinophils (Bld) [#/Vol] 0.13 10*3/uL [employer] Eosinophils/100 WBC (Bld) 1.9 % 0 - 6 % [employer] Erythrocyte distribution width (RBC) [Ratio] 12.6 fL 11.5 - 15 fL [employer] Hematocrit (Bld) [Volume fraction] 43.2 % 34 - 48 % [employer] Hemoglobin (Bld) [Mass/Vol] 14.0 g/dL 11.5 - 15.5 g/dL [employer] Immature granulocytes (Bld) [#/Vol] 0.02 10*3/uL E9/L [employer] Immature granulocytes/100 WBC (Bld) 0.3 % 0 - 5 % [employer] Lymphocytes (Bld) [#/Vol] 2.36 10*3/uL [employer] Lymphocytes/100 WBC (Bld) 34.2 % 20 - 42 % [employer] MCH (RBC) [Entitic mass] 29.7 pg 26 - 35 pg [employer] MCHC (RBC) [Mass/Vol] 32.4 % 32 - 34.5 % [employer] MCV (RBC) [Entitic vol] 91.7 fL 80 - 99.9 fL [employer] Monocytes (Bld) [#/Vol] 0.47 10*3/uL [employer] Monocytes/100 WBC (Bld) 6.8 % 2 - 12 % [employer] Neutrophils Absolute 3.86 [employer] Neutrophils/100 WBC (Bld) 55.9 % 43 - 80 % [employer] Platelet mean volume (Bld) [Entitic vol] 10.2 fL 7 - 12 fL [employer] Platelets (Bld) [#/Vol] 232 10*3/uL [employer] RBC (Bld) [#/Vol] 4.71 10*6/uL [employer] WBC (Bld) [#/Vol] 6.9 10*3/uL [employer] CBC With Platelet and Differ entialon 02-19-2020 Abs Imm Granulocytes 0.02 E9/L Normal [facility] Basophils (Bld) [#/Vol] 0.06 E9/L Normal 0.00-0.20 [facility] Basophils/100 WBC (Bld) 0.9 % Normal 0.0-2.0 [facility] Eosinophils (Bld) [#/Vol] 0.13 E9/L Normal 0.05-0.50 [facility] Eosinophils/100 WBC (Bld) 1.9 % Normal 0.0-6.0 [facility] Erythrocyte distribution width (RBC) [Ratio] 12.6 fL Normal 11.5-15.0 [facility] Hematocrit (Bld) [Volume fraction] 43.2 % Normal 34.0-48.0 [facility] Hemoglobin (Bld) [Mass/Vol] 14.0 g/dL Normal 11.5-15.5 [facility] Imm Granulocytes 0.3 % Normal 0.0-5.0 [facility] Lymphocytes (Bld) [#/Vol] 2.36 E9/L Normal 1.50-4.00 [facility] Lymphocytes/100 WBC (Bld) 34.2 % Normal 20.0-42.0 [facility] MCH (RBC) [Entitic mass] 29.7 pg Normal 26.0-35.0 [facility] MCHC (RBC) [Mass/Vol] 32.4 % Normal 32.0-34.5 [facility] MCV (RBC) [Entitic vol] 91.7 fL Normal 80.0-99.9 [facility] Monocytes (Bld) [#/Vol] 0.47 E9/L Normal 0.10-0.95 [facility] Monocytes/100 WBC (Bld) 6.8 % Normal 2.0-12.0 [facility] Neutrophils (Bld) [#/Vol] 3.86 E9/L Normal 1.80-7.30 [facility] Neutrophils/100 WBC (Bld) 55.9 % Normal 43.0-80.0 [facility] Platelet mean volume (Bld) [Entitic vol] 10.2 fL Normal 7.0-12.0 [facility] Platelets (Bld) [#/Vol] 232 E9/L Normal 130-450 [facility] RBC (Bld) [#/Vol] 4.71 E12/L Normal 3.50-5.50 [facility] WBC (Bld) [#/Vol] 6.9 E9/L Normal 4.5-11.5 [facility] Comprehensive Metabolic Pane damon 02-19-2020 Albumin [Mass/Vol] 4.6 g/dL Normal 3.5-5.2 [facility] ALP [Catalytic activity/Vol] 45 U/L Normal 35-104 [facility] ALT [Catalytic activity/Vol] 12 U/L Normal 0-32 [facility] Anion gap [Moles/Vol] 14 mmol/L Normal 7-16 [facility] AST [Catalytic activity/Vol] 15 U/L Normal 0-31 [facility] Bilirubin [Mass/Vol] 0.4 mg/dL Normal 0.0-1.2 [facility] Calcium [Mass/Vol] 9.8 mg/dL Normal 8.6-10.2 [facility] Chloride [Moles/Vol] 103 mmol/L Normal 98-107 [facility] CO2 [Moles/Vol] 22 mmol/L Normal 22-29 [facility] Creatinine [Mass/Vol] 0.8 mg/dL Normal 0.5-1.0 [facility] GFR/1.73 sq M predicted among blacks MDRD (S/P/Bld) [Vol rate/Area] mL/min/{1.73_m2} Normal [facility] GFR/1.73 sq M predicted among non-blacks MDRD (S/P/Bld) [Vol rate/Area] mL/min/{1.73_m2} Normal >=60 [facility] Comment on above: Result Comment: [employer] [place] Kidney Disease: less than 60 ml/min/1.73 sq.m. Kidney Failure: less than 15 ml/min/1.73 sq.m. Results valid for patients 18 years and older. Glucose [Mass/Vol] 95 mg/dL Normal 74-99 [facility] Potassium [Moles/Vol] 4.5 mmol/L Normal 3.5-5.0 [facility] Protein [Mass/Vol] 7.2 g/dL Normal 6.4-8.3 [facility] Sodium [Moles/Vol] 139 mmol/L Normal 132-146 [facility] Urea nitrogen [Mass/Vol] 12 mg/dL Normal 6-20 [facility] Albumin [Mass/Vol] 4.6 g/dL 3.5 - 5.2 g/dL [place], [place] ALP [Catalytic activity/Vol] 45 U/L 35 - 104 U/L [employer] ALT [Catalytic activity/Vol] 12 U/L 0 - 32 U/L [employer] Anion gap [Moles/Vol] 14 mmol/L 7 - 16 mmol/L [employer] AST [Catalytic activity/Vol] 15 U/L 0 - 31 U/L [employer] Bilirubin Ql (U) 0.4 mg/dL 0 - 1.2 mg/dL [employer] Calcium [Mass/Vol] 9.8 mg/dL 8.6 - 10.2 mg/dL [employer] Chloride [Moles/Vol] 103 mmol/L 98 - 107 mmol/L [employer] CO2 [Moles/Vol] 22 mmol/L 22 - 29 mmol/L [employer] Creatinine [Mass/Vol] 0.8 mg/dL 0.5 - 1 mg/dL [employer] GFR >60 [employer] GFR Non- >60 >=60 mL/min/1.73 [employer] Comment on above: Chronic Kidney Disea se: less than 60 ml/min/1.73 sq.m. Kidney Failure: less than 15 ml/min/1.73 sq.m. Results valid for patients 18 years and older. Glucose [Mass/Vol] 95 mg/dL 74 - 99 mg/dL [place], [place] Potassium [Moles/Vol] 4.5 mmol/L 3.5 - 5 mmol/L [employer] Protein [Mass/Vol] 7.2 g/dL 6.4 - 8.3 g/dL [place] Sodium [Moles/Vol] 139 mmol/L 132 - 146 mmol/L [employer] Urea nitrogen [Mass/Vol] 12 mg/dL 6 - 20 mg/dL [employer] XR foot RT min 3Von 04-10-20 XR foot RT min 3V [facility] [address] [place] [address] XRay Report Signed Patient: EDMUND ATKINS MR#: [id number] : 1990 Acct:[id number] Age/Sex: 29 / F Admit Date: 04/09/19 Loc: ER Attending Dr: Ordering Physician: Karthikeyan Castro MD Date of Service: 04/09/19 Procedure(s): XR foot RT min 3V Accession Number(s): [id number] cc: HISTORY: Infection. PHYSICIAN INDICATIONS: Injury TECHNIQUE: [...] Signed By: Beau Rg MD 04/10/19 0609 [employer] Officer: CINDY Normal [facility] ([place]) HCG SERUM,QUALITATIVEon 05-0 HCG SERUM,QUALITATIVE Negative [facility] Comment on above: Performed By: #### H #### [address] [address] OPon 11-10-2018 MR OP Patient name: EDMUND ATKINS MR#: [id number] Location: [facility] Acc#: [id number] Admit Date: : 1990 Age: 28 Sex: [...] condition. PEDRO/HUDSON @ 10:00 @ 20:20 # [id number] eBrnardo Puente M.D. Electronically Signed Date/Time: 11/11/18832 Electronically Signed Date/Time: 11/11/18832 [facility] 11-10-2018 PD.EDMUND FONTAINE [id number] Ordering physician: CHAZ GROSSMAN [facility] [id number] Attending physician: Zuleyka Gill 1990 28 DOS: [...] Mohamud DO Electronically Signed Date/Time: 11/10/18 08 [facility] POST.ANon 11-10-2018 POST.AN EDMUND ATKINS [id number] Ordering physician: CHAZ FIGUEROA [id number] Attending physician: Zuleyka Gill 1990 28 DOS: Anesthesia Postop Note - Post Anesthesia Complications: No Patient Orientation: Person, Place, Time Cardiopulmonary Status stable?: Yes 11/10/18 120 Dictated By: Yaw Mohamud DO Electronically Signed Date/Time: 11/10/18 1205 Normal [facility] Encounters Encounter Date Encounter Type Care Provider Facility Start: 09-21-2022 ambulatory Health Risk Assessment Facility:[facility] Start: 10-01-2021 End: 10-02-2021 ambulatory No Primary Care Physician Facility:[facility] Start: 10-01-2021 End: 10-01-2021 Patient encounter procedure [facility], [place] [facility] Start: 02-19-2020 End: 02-22-2020 Patient encounter procedure STEPHANIA NOLASCO [facility] Start: 02-19-2020 End: 02-21-2020 Subsequent hospital visit by physician Stephanai [facility] Comment on above: Lymphadenopathy of h ead and neck Start: 04-09-2019 End: 04-10-2019 Emergency department patient visit Karthikeyan Castro Facility:[facility] Start: 11-10-2018 Patient encounter procedure Bernardo Puente Facility:[facility] Start: 10-19-2018 End: 11-10-2018 Patient encounter procedure Bernardo Puente Facility:[facility] Procedures Date Procedure Procedure Detail Performing [...] 03-11-2020 Influenza vaccination Flu vaccine (# 1) [employer] Start: 03-10-2020 End: 03-10-2020 Office Visit 03/10/2020 Office Visit Primary Care Stephania Nolasco, [address] [place] [address] [phone] [facility] Start: 2011 Screening for malign ant neoplasm of cervix Cervical cancer screen [employer] Start: 2009 DTaP/Tdap/Td vaccine (1 - Tdap) DTaP/Tdap/Td vaccine (1 - Tdap) [employer] Start: 2005 HIV screening HIV screen [place], [place] Start: 1991 Varicella vaccine (1 of 2 - 2-dose childhood series) Varicella vaccine (1 of 2 - 2-dose childhood series) [employer] Payers Date Payer Category Payer Unknown [id number] 2019 Private Health Insurance [id number] 2018 Self-pay 2018 Unknown [id number] 1990 Unknown [id number] Unknown [id number] .16.8 [id number] Unknown [id number] .16.8 [id number] Unknown [id number] 2.16.84 [id number] Unknown [id number] .16.8 [id number] Unknown [id number] .16.8 [id number] Social History Date Type Detail Facility never a smoker [facility] Start: 02-19-2020 [facility] [employer] [place] Start: 02-19-2020 [facility] and exposure [facility] Start: 02-19-2020 [facility] intake [facility]finding[facility] Start: 1990 Sex Assigned At Female Ganesh [facility] Work Phone: Progress note 10-14-2021 Note Date & Type Note Facility 10-14-2021 Note HNO ID: [id number] Author: Tamra Beasley APRN.[employer] Service: ? Author Type: Nurse Practitioner [...] unremarkable at t (more content not included)... [facility] Progress note 09-24-2021 Note Date & Type Note Facility 09-24-2021 Note HNO ID: [id number] Author: Nayely Lopez APRN.[employer] Service: ? Author Type: Nurse Practitioner Type: Progress Notes Filed: 09/24/2021 10:15 AM Note Text: This note was created using MoPoweredriter. Subjective Edmund Atkins is a 31 year [...] UR B/O 2. Pelvic pain - ICD9: [id number], ICD10: R10.2 Differential Diagnosis includes Ovarian cyst, PID, endometriosis, pelvic floor dysfunction - GC/CHLAMYDIA AMPLIF, URINE - HCG QUAL UR B/O- negative in office. - Patient has appointment with [facility] next week. She is offered a vaginal exam today and declines-notes current period. Primarily wanted to rule out UTI today and will follow up with [facility] for further evaluation. Eleazar Arreguin RN - Follow-up with your PCP in 3-5 days if symptoms have not improved or sooner if symptoms worsen - Discussed red flags and need for immediate medical evaluation if any occur. - Discussed supportive care treatment with fluids, rest and analgesia. - Discussed expected course of illness TEACHING PROVIDER (Physician/PA/SCALLOP RAKER) NOTE OF PERSONAL INVOLVEMENT IN CARE: I have personally seen and examined the patient and performed the medical decision-making components. I have reviewed the Advanced Practice Registered Nurse (SCALLOP RAKER) Student's documentation and verified the findings in the note as written. Any additions or changes are noted in bold/italics. Signature: Nayely Lopez Date: 09/24/2021 Time: 10:13 AM [facility] Evaluation note Note Date & Type Note Facility Evaluation note No assessment information availa [facility] Work Phone: Hospital Course Discharge Summary No Discharge Summary Informa tion Discharge Instructions Discharge Instructions No Discharge Instructions Summary Purpose Family History No Family History Records FoundNo Family History Records FoundNo Family History Records FoundNo Family History Records FoundNo Family History Records Found Advance Directives No Advanced Directives Records FoundDocuments on File Type Date Recorded Patient Engineering Aide Expl anation Advance Directives and Living Will Power of Substation Operator Conversion Assessments Diagnosis Lymphadenopathy of head and neck Chief Complaint and Reason for Visit Chief Complaint PELVIC PAIN Additional Source Comments INFORMATION SOURCE (unrecogn ized section and content) DATE CREATED AUTHOR 11/28/2018 [facility] DATE CREATED AUTHOR AUTHOR'S ORGANIZ ATION 04/13/2019 [facility] ([place]) DATE CREATED AUTHOR AUTHOR'S ORGANIZ ATION 02/22/2020 [facility] DATE CREATED AUTHOR AUTHOR'S ORGANIZ ATION 10/16/2021 [facility] DATE CREATED AUTHOR AUTHOR'S ORGANIZ ATION 09/23/2022 [facility] Goals (unrecognized section and content) Goals may [...] BE BASED ON THE PRIMARY CLINICAL RECORDS. [facility]. provides no warranty or guarantee of the accuracy or completeness of information in this document.
--- OUTSIDE RECORDS SUMMARY | 2025-07-04 18:26 | XMS RPT_ITS | CCD ---
Author Organization [facility] Inform ion Partnership [facility] Care Team Providers Care Senior Project Leader/Team Lead Name Role Phone Unavailable Unavailable Unavailable Bernardo Puente Primary Care Unavailable Zuleyka Gill N.P. Attending Bernardo Noguera Attending Unavailable Bernardo Puente Primary Care Unavailable Karthikeyan Castro Attending Unavailable Stephania Nolasco Primary Care Provider [phone] STEPHANIA NOLASCO Referring Unavailable STEPHANIA NOLASCO Primary [...] (2 sources) erythromycin; Translations: [Erythromycin] Drug Allergy [facility] (2 sources) medroxyPROGESTERo ne; Translations: [Depo-Provera] Drug Allergy [facility] (5 sources) Penicillins; Translations: [Penicillins] drug allergy 04-21-2017 [facility] Medications Current Medications Medication Drug Class(es) [...] Completed docusate sodium 50 mg / sennosides, chcf 8.6 mg oral tablet (2 sources) take 1 tablet by mouth every twenty-four hours as needed Docusate Sodium 50 MG / sennosides, [facility] 8.6 MG Oral Tablet [Nolvia-Colace Reformulated Aug [...] tablet Every day PRN Oral Active PNV#75-iron [id number] (2 sources) End: 10-26-2015 take 1 tablet [...] Ab, IgG 33.0 AU/mL Normal Immune >10.9 [facility] Comment on above: Result Comment: Nega tive <9.0 Equivocal 9.0 - 10.9 Positive >10.9 A positive result generally indicates past exposure to Mumps virus or previous vaccination. Performed By: #### L 506.0400, L3100.5170, L3100.5125, L3300.1750, L3400.4800, L100.0500, L501.9520 #### [facility] [address] [place], [address] [facility] EMP Rubeola Titeron 03-1 RUBEOLA Ab, IgG > 300.0 Normal Immune >16.4 [facility] Comment on above: Result Comment: Nega tive <13.5 Equivocal 13.5 - 16.4 Positive >16.4 Presence of antibodies to Rubeola is presumptive evidence of immunity except when acute infection is suspected. Performed at: [address] [id number] Car Construction Superintendent: Priyank Lemon PhD, Phone: [phone] Performed By: #### L 506.0400, L3100.5170, L3100.5125, L3300.1750, L3400.4800, L100.0500, L501.9520 #### [facility] [address] [place], [address] Hepatitis B Surf AB - EMPon 09-21-2022 HEP B Surf Ab Reactive Normal [facility] Comment on above: Result Comment: Non Reactive: Inconsistent with immunity less than <10 mIU/mL Reactive: Consistent with immunity greater than or equal to 10 mIU/mL Performed By: #### L 3400.1750, L3100.0539, L3100.3400, L509.4015 #### [facility] [address] [place], [address] Rubella IgG [facility] EMPLOYEEon 0 09-21-2022 Rubella IgG Reactive Normal Nonreactive [facility] Comment on above: Result Comment: Anti body Results Interpretation of Immune Status Non Reactive Presumed Non-Immune Equivocal Equivocal Reactive Presumed Immune Performed By: #### L 3400.1750, L3100.0539, L3100.3400, L509.4015 #### [facility] [place], [address] CNOVon 10-14-2021 CNOV Office Visit (UCWSTR ) EDMUND ATKINS ([id number]) 1990 F Date Time Provider Department 10/14/21 8:30 AM TAMRA BEASLEY [facility] During your visit today, we recorded the following information about you: Temperature Pulse Respiration Blood pressure 98.6 degrees 102/minute 20/minute 130/78 Weight 83.1 kg Tamra Beasley APRN.BOILER HOUSE INSPECTOR 10/14/2021 9:01 AM Signed Subjective HPI Nontoxic-appearing [...] was educated (more content not included)... Normal [facility] PAP I-G w/rfx hrHPV-Aptimaon 10-10-2021 ADEQ Comment Normal . [facility] Comment on above: Order Comment: CYTOL OGY INFORMATION: - CLINICAL INFORMATION: ANNUAL - Non - DATE LMP/MENOPAUSE: 536357 LMP - COLLECTION VIAL: Thin Prep Vial - TECHNICAL AGRONOMIST SOURCE: CERVICAL/ENDOCERVICAL - COLLECTION TECHNIQUE: BRUSH/SPATULA Specimen Comment: [id number] Specimen Comment: No. of containers..01 ThinPrep Vial Result Comment: Sati sfactory for evaluation. Endocervical and/or squamous metaplastic cells (endocervical component) are present. Performed By: #### L 7400.0353 #### [facility], [address] COMMENT Comment Normal . [facility] Comment on above: Order Comment: CYTOL OGY INFORMATION: - CLINICAL INFORMATION: ANNUAL - Non - DATE LMP/MENOPAUSE: 052055 LMP - COLLECTION VIAL: Thin Prep Vial - TECHNICAL AGRONOMIST SOURCE: CERVICAL/ENDOCERVICAL - COLLECTION TECHNIQUE: BRUSH/SPATULA Specimen Comment: [id number] Specimen Comment: No. of containers..01 ThinPrep Vial Result Comment: This liquid based ThinPrep(R) pap test was screened with the use of an image guided system. Performed By: #### L 7400.0353 #### [facility] [address] [place], [place], [address] DIAG Comment Abnormal . [facility] Comment on above: Order Comment: CYTOL OGY INFORMATION: - CLINICAL INFORMATION: ANNUAL - Non - DATE LMP/MENOPAUSE: 856024 LMP - COLLECTION VIAL: Thin Prep Vial - TECHNICAL AGRONOMIST SOURCE: CERVICAL/ENDOCERVICAL - COLLECTION TECHNIQUE: BRUSH/SPATULA Specimen Comment: [id number] Specimen Comment: No. of containers..01 ThinPrep Vial Result Comment: EPIT HELIAL CELL ABNORMALITY. ATYPICAL SQUAMOUS CELLS OF UNDETERMINED SIGNIFICANCE (ASC-US). Performed By: #### L 7400.0353 #### [facility] [address] [place], [address] HPV APTIMA, HR Negative Normal Negative [facility] Comment on above: Order Comment: CYTOL OGY INFORMATION: - CLINICAL INFORMATION: ANNUAL - Non - DATE LMP/MENOPAUSE: 3160812 LMP - COLLECTION VIAL: Thin Prep Vial - TECHNICAL AGRONOMIST SOURCE: CERVICAL/ENDOCERVICAL - COLLECTION TECHNIQUE: BRUSH/SPATULA Specimen Comment: [id number] Specimen Comment: No. of containers..01 ThinPrep Vial Result Comment: This nucleic acid amplification test detects fourteen high- risk HPV types (16,18,31,33,35,39,45,51,52,56,58,59,66,68) without differentiation. Performed at: - [address] [id number] Car Construction Superintendent: Yahaira Ng MD, Phone: [phone] Performed at: = - [facility] [id number] Car Construction Superintendent: Yahaira Ng MD, Phone: [phone] Performed By: #### L 7400.0353 #### [facility] [address] [place], [place], [address] HPV RFLX Comment Normal . [facility] Comment on above: Order Comment: CYTOL OGY INFORMATION: - CLINICAL INFORMATION: ANNUAL - Non - DATE LMP/MENOPAUSE: 242139 LMP - COLLECTION VIAL: Thin Prep Vial - TECHNICAL AGRONOMIST SOURCE: CERVICAL/ENDOCERVICAL - COLLECTION TECHNIQUE: BRUSH/SPATULA Specimen Comment: [id number] Specimen Comment: No. of containers..01 ThinPrep Vial Result Comment: See below for HPV testing results. Performed By: #### L 7400.0353 #### [facility] [address] [place], [place], [address] PAPSMR Comment Normal . [facility] Comment on above: Order Comment: CYTOL OGY INFORMATION: - CLINICAL INFORMATION: ANNUAL - Non - DATE LMP/MENOPAUSE: 336902 LMP - COLLECTION VIAL: Thin Prep Vial - TECHNICAL AGRONOMIST SOURCE: CERVICAL/ENDOCERVICAL - COLLECTION TECHNIQUE: BRUSH/SPATULA Specimen Comment: [id number] Specimen Comment: No. of containers..01 ThinPrep Vial Result Comment: The Pap smear is a screening test designed to aid in the detection of premalignant and malignant conditions of the uterine cervix. It is not a diagnostic procedure and should not be used as the sole means of detecting cervical cancer. Both false-positive and false-negative reports do occur. Performed By: #### L 7400.0353 #### [facility] [address] [place], [address] Path.prov.IDC-9 Comment Normal . [facility] Comment on above: Order Comment: CYTOL OGY INFORMATION: - CLINICAL INFORMATION: ANNUAL - Non - DATE LMP/MENOPAUSE: 692644 LMP - COLLECTION VIAL: Thin Prep Vial - TECHNICAL AGRONOMIST SOURCE: CERVICAL/ENDOCERVICAL - COLLECTION TECHNIQUE: BRUSH/SPATULA Specimen Comment: [id number] Specimen Comment: No. of containers..01 ThinPrep Vial Result Comment: [id number] Performed By: #### L 7400.0353 #### [facility] [address] [place], [place], [address] PERFORM Comment Normal . [facility] Comment on above: Order Comment: CYTOL OGY INFORMATION: - CLINICAL INFORMATION: ANNUAL - Non - DATE LMP/MENOPAUSE: 250703 LMP - COLLECTION VIAL: Thin Prep Vial - TECHNICAL AGRONOMIST SOURCE: CERVICAL/ENDOCERVICAL - COLLECTION TECHNIQUE: BRUSH/SPATULA Specimen Comment: [id number] Specimen Comment: No. of containers..01 ThinPrep Vial Result Comment: Ana Rebollar, Cooler Operator (ASCP) Performed By: #### L 7400.0353 #### [facility] [address] [place], [address] RECOMM Comment Abnormal . [facility] Comment on above: Order Comment: CYTOL OGY INFORMATION: - CLINICAL INFORMATION: ANNUAL - Non - DATE LMP/MENOPAUSE: 014688 LMP - COLLECTION VIAL: Thin Prep Vial - TECHNICAL AGRONOMIST SOURCE: CERVICAL/ENDOCERVICAL - COLLECTION TECHNIQUE: BRUSH/SPATULA Specimen Comment: [id number] Specimen Comment: No. of containers..01 ThinPrep Vial Result Comment: Sugg est follow up as clinically appropriate. Performed By: #### L 7400.0353 #### [facility] [address] [place], [address] SIGN Comment Normal . [facility] Comment on above: Order Comment: CYTOL OGY INFORMATION: - CLINICAL INFORMATION: ANNUAL - Non - DATE LMP/MENOPAUSE: 097161 LMP - COLLECTION VIAL: Thin Prep Vial - TECHNICAL AGRONOMIST SOURCE: CERVICAL/ENDOCERVICAL - COLLECTION TECHNIQUE: BRUSH/SPATULA Specimen Comment: [id number] Specimen Comment: No. of containers..01 ThinPrep Vial Result Comment: Susie Pacheco MD, Pathologist Performed By: #### L 7400.0353 #### [facility] [address] [place], [place], [address] COMM . Normal . [facility] Comment on above: Order Comment: CYTOL OGY INFORMATION: - CLINICAL INFORMATION: ANNUAL - Non - DATE LMP/MENOPAUSE: 353747 LMP - COLLECTION VIAL: Thin Prep Vial - TECHNICAL AGRONOMIST SOURCE: CERVICAL/ENDOCERVICAL - COLLECTION TECHNIQUE: BRUSH/SPATULA Specimen Comment: [id number] Specimen Comment: No. of containers..01 ThinPrep Vial Performed By: #### L 7400.0353 #### [facility] [address] [place], [place], [address] Testosterone Freeon 10-05-19 22 TESTOSTER FREE 2.3 pg/mL Normal 0.0-4.2 [facility] Comment on above: Result Comment: Perf ormed at: [facility] [id number] Car Construction Superintendent: Anya Kim MD, Phone: [phone] Performed By: #### L 506.0400, L3100.5170, L3100.5125, L3300.1750, L3400.4800, L100.0500, L501.9520 #### [facility] [address] [place], [place], [id number] Basophil percentageon 2021 WBC (Bld) [#/Vol] 6.1 10*3/uL 4.4-11.0 [facility] Work Phone: Blood erythrocytes count (nu mber/volume)on 10-01-2021 RBC (Bld) [#/Vol] 4.67 10*6/uL 4.2-5.4 [facility] Work Phone: Blood hemoglobin measurement (mass/volume)on 10-01-2021 Hemoglobin (Bld) [Mass/Vol] 14.3 g/dL 12.0-15.0 [facility] Work Phone: Blood platelet mean volumeon 10-01-2021 Platelet mean volume (Bld) [Entitic vol] 9.4 fL 6.2-12.0 [facility] Work Phone: CBC-Complete Blood Cnt No Di ffon 10-01-2021 Erythrocyte distribution width (RBC) [Ratio] 12.4 % Normal 11.6-14.6 [facility] Comment on above: Performed By: #### L 506.0400, L3100.5170, L3100.5125, L3300.1750, L3400.4800, L100.0500, L501.9520 #### [facility] [address] [place], [address] Hematocrit (Bld) [Volume fraction] 40.6 % Normal 37-47 [facility] Comment on above: Performed By: #### L 506.0400, L3100.5170, L3100.5125, L3300.1750, L3400.4800, L100.0500, L501.9520 #### [facility] [address] [place], [address] Hemoglobin (Bld) [Mass/Vol] 14.3 g/dL Normal 12.0-15.0 [facility] Comment on above: Performed By: #### L 506.0400, L3100.5170, L3100.5125, L3300.1750, L3400.4800, L100.0500, L501.9520 #### [facility] [address] [place], [address] MCH (RBC) [Entitic mass] 30.6 pg Normal 27.0-32.0 [facility] Comment on above: Performed By: #### L 506.0400, L3100.5170, L3100.5125, L3300.1750, L3400.4800, L100.0500, L501.9520 #### [facility] [address] [place], [address] MCHC (RBC) [Mass/Vol] 35.2 g/dL Normal 32-36 [facility] Comment on above: Performed By: #### L 506.0400, L3100.5170, L3100.5125, L3300.1750, L3400.4800, L100.0500, L501.9520 #### [facility] [address] [place], [address] MCV (RBC) [Entitic vol] 86.9 fL Normal 81-99 [facility] Comment on above: Performed By: #### L 506.0400, L3100.5170, L3100.5125, L3300.1750, L3400.4800, L100.0500, L501.9520 #### [facility] [address] [place], [address] Platelet mean volume (Bld) [Entitic vol] 9.4 fL Normal 6.2-12.0 [facility] Comment on above: Performed By: #### L 506.0400, L3100.5170, L3100.5125, L3300.1750, L3400.4800, L100.0500, L501.9520 #### [facility] [address] [place], [address] Platelets (Bld) [#/Vol] 295 10*3/uL Normal 150-450 [facility] Comment on above: Performed By: #### L 506.0400, L3100.5170, L3100.5125, L3300.1750, L3400.4800, L100.0500, L501.9520 #### [facility] [address] [place], [address] RBC (Bld) [#/Vol] 4.67 10*6/uL Normal 4.2-5.4 [facility] Comment on above: Performed By: #### L 506.0400, L3100.5170, L3100.5125, L3300.1750, L3400.4800, L100.0500, L501.9520 #### [facility] [address] [place], [address] RDW SD 39.4 fl Normal 35.1-43.9 [facility] Comment on above: Performed By: #### L 506.0400, L3100.5170, L3100.5125, L3300.1750, L3400.4800, L100.0500, L501.9520 #### [facility] [address] [place], [address] WBC (Bld) [#/Vol] 6.1 10*3/uL Normal 4.4-11.0 [facility] Comment on above: Performed By: #### L 506.0400, L3100.5170, L3100.5125, L3300.1750, L3400.4800, L100.0500, L501.9520 #### [facility] [address] [place], [place], [address] Determination of erythrocyte mean corpuscular volume (MCV)on 10-01-2021 MCV (RBC) [Entitic vol] 86.9 fL 81-99 [facility] Work Phone: Estradiolon 10-01-2021 ESTRADIOL 111.8 pg/mL Normal [facility] Comment on above: Result Comment: NORM AL [...] L3100.5170, L3100.5125, L3300.1750, L3400.4800, L100.0500, L501.9520 #### [facility] [address] [place], [place], [address] Follicle Stimulating Hormone on 10-01-2021 FSH 5.0 mIU/mL Normal [facility] Comment on above: Result Comment: NORMAL REFERENCE RANGES FEMALE FOLLICULAR 2.3 - 12.6 mIU/mL MID-CYCLE PEAK 5.2 - 17.5 mIU/mL LUTEAL 1.7 - 12.9 mIU/mL POST-MENOPAUSAL ON MHT 5.9 - 72.8 mIU/mL NOT ON MHT 12.7 - 132.2 mlU/mL MALE 0.7 - 10.8 mIU/mL Performed By: #### L 506.0400, L3100.5170, L3100.5125, L3300.1750, L3400.4800, L100.0500, L501.9520 #### [facility] [address] [place], [place], [address] Hematocrit Auto (Bld) [Volum e fraction]on 10-01-2021 Hematocrit (Bld) [Volume fraction] 40.6 % 37-47 [facility] Work Phone: Laboratory - Chemistry and C hemistry - challengeon 10-01-2021 Free T4 [Mass/Vol] 0.95 ng/dL 0.76-1.46 [facility] Work Phone: Laboratory - Hematology and Cell countson 10-01-2021 Erythrocyte distribution width (RBC) [Entitic vol] 39.4 fL 35.1-43.9 [facility] Work Phone: Erythrocyte distribution width (RBC) [Ratio] 12.4 % 11.6-14.6 [facility] Work Phone: MCH (RBC) [Entitic mass] 30.6 pg 27.0-32.0 [facility] Work Phone: Luteinizing Hormoneon 2021 LH 4.6 mIU/mL Normal [facility] Comment on above: Result Comment: NORMAL REFERENCE RANGES FEMALE FOLLICULAR 1.9 - 26.2 mIU/mL MID-CYCLE PEAK 22.8 - 76.1 mIU/mL LUTEAL 0.6 - 16.6 mIU/mL POST-MENOPAUSAL ON MHT 1.1 - 52.4 mIU/mL NOT ON MHT 8.6 - 61.8 mIU/mL MALE 1.2 - 10.6 mIU/mL Performed By: #### L 506.0400, L3100.5170, L3100.5125, L3300.1750, L3400.4800, L100.0500, L501.9520 #### [facility] [address] [place], [place], [address] MCHC Auto (RBC) [Mass/Vol]on 10-01-2021 MCHC (RBC) [Mass/Vol] 35.2 g/dL 32-36 [facility] Work Phone: No Panel Informationon 10-01 Follicle Stimulating Hormone 5.0 mIU/mL [facility] Work Phone: Comment on above: NORMAL REFERENCE RAN GES FEMALE FOLLICULAR 2.3 - 12.6 mIU/mL MID-CYCLE PEAK 5.2 - 17.5 mIU/mL LUTEAL 1.7 - 12.9 mIU/mL POST-MENOPAUSAL ON MHT 5.9 - 72.8 mIU/mL NOT ON MHT 12.7 - 132.2 mlU/mL MALE 0.7 - 10.8 mIU/mL Luteinizing Hormone 4.6 mIU/mL [facility] Work Phone: Comment on above: NORMAL REFERENCE RAN GES FEMALE FOLLICULAR 1.9 - 26.2 mIU/mL MID-CYCLE PEAK 22.8 - 76.1 mIU/mL LUTEAL 0.6 - 16.6 mIU/mL POST-MENOPAUSAL ON MHT 1.1 - 52.4 mIU/mL NOT ON MHT 8.6 - 61.8 mIU/mL MALE 1.2 - 10.6 mIU/mL Thyroid Stimulating Hormone (TSH) 0.96 uIU/mL 0.358-3.74 [facility] Work Phone: Platelets bldon 10-01-2021 Platelets (Bld) [#/Vol] 295 10*3/uL 150-450 [facility] Work Phone: Serum or plasma estradiol (E 2) measurement (mass/volume)on 10-01-2021 E2 [Mass/Vol] 111.8 pg/mL [facility] Work Phone: Comment on above: NORMAL REFERENCE [...] (mass/volume)on 10-01-2021 Testosterone Free [Mass/Vol] 2.3 pg/mL [facility] Work Phone: Comment on above: Performed at: [address] [id number] Director: Anya Kim MD, Phone: [phone] T4 Free Directon 10-01-2021 T4 FREE DIRECT 0.95 ng/dL Normal 0.76-1.46 [facility] Comment on above: Performed By: #### L 506.0400, L3100.5170, L3100.5125, L3300.1750, L3400.4800, L100.0500, L501.9520 #### [facility] [address] [facility] [place], [address] Thyroid Stim Hormone (TSH)on 10-01-2021 TSH 0.96 uIU/mL Normal 0.358-3.74 [facility] Comment on above: Performed By: #### L 506.0400, L3100.5170, L3100.5125, L3300.1750, L3400.4800, L100.0500, L501.9520 #### [facility] [address] [facility] [place], [place], [address] [facility] Telephone ([facility]WSTR) EDMUND ATKINS ([id number]) 1990 F Date Time Provider Department 09/25/21 [...] File) Date Reviewed: 09/24/2021 Reviewed by: Khushbu Preson MA - Fully Assessed Reason for Visit: Results [95] Problem List As Of Date: 09/25/2021 (None) Encounter Status:Closed by KRISTIE BRYANT on 09/25/21 Normal [facility] Bacteria Ur Culton 2 Bacteria identified Cx Nom (U) CULTURE, URINE: No growth (<1,000 CFU/ml) Normal [facility] Comment on above: Performed By: #### 6 30-4 #### [facility] CLIA [id number] [address] [place] [address] [place] C trach+GC DNA Ur Ql JOCELYN+pro beon 09-24-2021 C. trachomatis+N. gonorrhoeae DNA JOCELYN+probe Ql (U) GC AMPLIFICATION: Negative for Neisseria gonorrhoeae by amplification CHLAMYDIA AMPLIFICATION: Negative for Chlamydia trachomatis by amplification Normal [facility] Comment on above: Performed By: #### 4 4806-8 #### [facility] CLIA [id number] [address] [place] [address] [place] CNOVon 09-24-2021 CNOV Office Visit (UCWSTR ) EDMUND ATKINS ([id number]) 1990 F Date Time Provider Department 09/24/21 [...] UR B/O 2. Pelvic pain - ICD9: [id number], ICD10: R10.2 Differential Diagnosis includes Ovarian cyst, PID, endometriosis, pelvic floor dysfunction - GC/CHLAMYDIA AMPLIF, URINE - HCG QUAL UR B/O- negative in office. - Patient has appointment with [facility] next week. She is offered a vaginal exam today and declines-notes current period. Primarily wanted to rule out UTI today and will follow up with [facility] for further evaluation. Eleazar Arreguin RN - Follow-up with your PCP in 3-5 days if symptoms have not improved or sooner if symptoms worsen - Discussed red flags and need for immediate medical evaluation if any occur. - Discussed supportive care treatment with fluids, rest and analgesia. - Discussed expected course of illness TEACHING PROVIDER (Physician/PA/QUESTIONED DOCUMENTS EXAMINER) NOTE OF PERSONAL INVOLVEMENT IN CARE: I have personally seen and examined the patient and performed the medical decision-making components. I have reviewed the Advanced Practice Registered Nurse (QUESTIONED DOCUMENTS EXAMINER) Student's documentation and verified the findings in the note as written. Any additions or changes are noted in bold/italics. Signature: Nayely Lopez Date: 09/24/2021 Time: 10:13 AM Eleazra Rodríguez 09/24/2021 9:45 AM Signed Avoid intercourse if painful until follow up with OBG (more content not included)... Normal [facility] CBC Auto Differentialon 08- Basophils (Bld) [#/Vol] 0.06 10*3/uL [place] Basophils/100 WBC (Bld) 0.9 % 0 - 2 % [place] Eosinophils (Bld) [#/Vol] 0.13 10*3/uL [place] Eosinophils/100 WBC (Bld) 1.9 % 0 - 6 % [place] Erythrocyte distribution width (RBC) [Ratio] 12.6 fL 11.5 - 15 fL [place] Hematocrit (Bld) [Volume fraction] 43.2 % 34 - 48 % [place] Hemoglobin (Bld) [Mass/Vol] 14.0 g/dL 11.5 - 15.5 g/dL [place] Immature granulocytes (Bld) [#/Vol] 0.02 10*3/uL E9/L [place] Immature granulocytes/100 WBC (Bld) 0.3 % 0 - 5 % [place] Lymphocytes (Bld) [#/Vol] 2.36 10*3/uL [place] Lymphocytes/100 WBC (Bld) 34.2 % 20 - 42 % [place] MCH (RBC) [Entitic mass] 29.7 pg 26 - 35 pg [place] MCHC (RBC) [Mass/Vol] 32.4 % 32 - 34.5 % [place] MCV (RBC) [Entitic vol] 91.7 fL 80 - 99.9 fL [place] Monocytes (Bld) [#/Vol] 0.47 10*3/uL [place] Monocytes/100 WBC (Bld) 6.8 % 2 - 12 % [place] Neutrophils Absolute 3.86 [place] Neutrophils/100 WBC (Bld) 55.9 % 43 - 80 % [place] Platelet mean volume (Bld) [Entitic vol] 10.2 fL 7 - 12 fL [place] Platelets (Bld) [#/Vol] 232 10*3/uL [place] RBC (Bld) [#/Vol] 4.71 10*6/uL [place] WBC (Bld) [#/Vol] 6.9 10*3/uL [place] CBC With Platelet and Differ entialon 02-19-2020 Abs Imm Granulocytes 0.02 E9/L Normal [facility] Basophils (Bld) [#/Vol] 0.06 E9/L Normal 0.00-0.20 [facility] Basophils/100 WBC (Bld) 0.9 % Normal 0.0-2.0 [facility] Eosinophils (Bld) [#/Vol] 0.13 E9/L Normal 0.05-0.50 [facility] Eosinophils/100 WBC (Bld) 1.9 % Normal 0.0-6.0 [facility] Erythrocyte distribution width (RBC) [Ratio] 12.6 fL Normal 11.5-15.0 [facility] Hematocrit (Bld) [Volume fraction] 43.2 % Normal 34.0-48.0 [facility] Hemoglobin (Bld) [Mass/Vol] 14.0 g/dL Normal 11.5-15.5 [facility] Imm Granulocytes 0.3 % Normal 0.0-5.0 [facility] Lymphocytes (Bld) [#/Vol] 2.36 E9/L Normal 1.50-4.00 [facility] Lymphocytes/100 WBC (Bld) 34.2 % Normal 20.0-42.0 [facility] MCH (RBC) [Entitic mass] 29.7 pg Normal 26.0-35.0 [facility] MCHC (RBC) [Mass/Vol] 32.4 % Normal 32.0-34.5 [facility] MCV (RBC) [Entitic vol] 91.7 fL Normal 80.0-99.9 [facility] Monocytes (Bld) [#/Vol] 0.47 E9/L Normal 0.10-0.95 [facility] Monocytes/100 WBC (Bld) 6.8 % Normal 2.0-12.0 [facility] Neutrophils (Bld) [#/Vol] 3.86 E9/L Normal 1.80-7.30 [facility] Neutrophils/100 WBC (Bld) 55.9 % Normal 43.0-80.0 [facility] Platelet mean volume (Bld) [Entitic vol] 10.2 fL Normal 7.0-12.0 [facility] Platelets (Bld) [#/Vol] 232 E9/L Normal 130-450 [facility] RBC (Bld) [#/Vol] 4.71 E12/L Normal 3.50-5.50 [facility] [facility] WBC (Bld) [#/Vol] 6.9 E9/L Normal 4.5-11.5 [facility] Comprehensive Metabolic Pane damon 02-19-2020 Albumin [Mass/Vol] 4.6 g/dL Normal 3.5-5.2 [facility] ALP [Catalytic activity/Vol] 45 U/L Normal 35-104 [facility] ALT [Catalytic activity/Vol] 12 U/L Normal 0-32 [facility] Anion gap [Moles/Vol] 14 mmol/L Normal 7-16 [facility] AST [Catalytic activity/Vol] 15 U/L Normal 0-31 [facility] Bilirubin [Mass/Vol] 0.4 mg/dL Normal 0.0-1.2 [facility] Calcium [Mass/Vol] 9.8 mg/dL Normal 8.6-10.2 [facility] Chloride [Moles/Vol] 103 mmol/L Normal 98-107 [facility] CO2 [Moles/Vol] 22 mmol/L Normal 22-29 [facility] Creatinine [Mass/Vol] 0.8 mg/dL Normal 0.5-1.0 [facility] GFR/1.73 sq M predicted among blacks MDRD (S/P/Bld) [Vol rate/Area] mL/min/{1.73_m2} Normal [facility] GFR/1.73 sq M predicted among non-blacks MDRD (S/P/Bld) [Vol rate/Area] mL/min/{1.73_m2} Normal >=60 [facility] Comment on above: Result Comment: Packaging Sales Representative [place]lotte Kidney Disease: less than 60 ml/min/1.73 sq.m. Kidney Failure: less than 15 ml/min/1.73 sq.m. Results valid for patients 18 years and older. Glucose [Mass/Vol] 95 mg/dL Normal 74-99 [facility] Potassium [Moles/Vol] 4.5 mmol/L Normal 3.5-5.0 [facility] Protein [Mass/Vol] 7.2 g/dL Normal 6.4-8.3 [facility] Sodium [Moles/Vol] 139 mmol/L Normal 132-146 [facility] Urea nitrogen [Mass/Vol] 12 mg/dL Normal 6-20 [facility] Albumin [Mass/Vol] 4.6 g/dL 3.5 - 5.2 g/dL [place], [place] ALP [Catalytic activity/Vol] 45 U/L 35 - 104 U/L [place], [place] ALT [Catalytic activity/Vol] 12 U/L 0 - 32 U/L [place] Anion gap [Moles/Vol] 14 mmol/L 7 - 16 mmol/L [place] AST [Catalytic activity/Vol] 15 U/L 0 - 31 U/L [place] Bilirubin Ql (U) 0.4 mg/dL 0 - 1.2 mg/dL [place] Calcium [Mass/Vol] 9.8 mg/dL 8.6 - 10.2 mg/dL [place] Chloride [Moles/Vol] 103 mmol/L 98 - 107 mmol/L [place] CO2 [Moles/Vol] 22 mmol/L 22 - 29 mmol/L [place] Creatinine [Mass/Vol] 0.8 mg/dL 0.5 - 1 mg/dL [place] GFR >60 [place] GFR Non- >60 >=60 mL/min/1.73 [place] Comment on above: Chronic Kidney Disea se: less than 60 ml/min/1.73 sq.m. Kidney Failure: less than 15 ml/min/1.73 sq.m. Results valid for patients 18 years and older. Glucose [Mass/Vol] 95 mg/dL 74 - 99 mg/dL [place] Potassium [Moles/Vol] 4.5 mmol/L 3.5 - 5 mmol/L [place] Protein [Mass/Vol] 7.2 g/dL 6.4 - 8.3 g/dL [place] Sodium [Moles/Vol] 139 mmol/L 132 - 146 mmol/L [place] Urea nitrogen [Mass/Vol] 12 mg/dL 6 - 20 mg/dL [place] XR foot RT min 3Von 04-10-20 XR foot RT min 3V [facility] [address] [place] [address] XRay Report Signed Patient: EDMUND ATKINS MR#: [id number] : 1990 Acct:[id number] Age/Sex: 29 / F Admit Date: 04/09/19 Loc: ER Attending Dr: Ordering Physician: Karthikeyan Castro MD Date of Service: 04/09/19 Procedure(s): XR foot RT min 3V Accession Number(s): [id number] cc: HISTORY: Infection. PHYSICIAN INDICATIONS: Injury TECHNIQUE: [...] Signed By: Beau Rg MD 04/10/19 0609 Block Hacker: CINDY Normal [facility] ([place]) HCG SERUM,QUALITATIVEon 05-0 HCG SERUM,QUALITATIVE Negative [facility] Comment on above: Performed By: #### H #### [address] [address] OPon 11-10-2018 MR OP Patient name: EDMUND ATKINS MR#: [id number] Location: [facility] Acc#: [id number] Admit Date: : 1990 Age: 28 Sex: [...] condition. PEDRO/HUDSON @ 10:00 @ 20:20 # [id number] Bernardo Puente M.D. Electronically Signed Date/Time: 11/11/18832 Electronically Signed Date/Time: 11/11/18832 [facility] 11-10-2018 PD.EDMUND FONTAINE [id number] Ordering physician: CHAZ GROSSMAN [facility] [id number] Attending physician: Zuleyka Gill 1990 28 DOS: [...] Mohamud DO Electronically Signed Date/Time: 11/10/18 08 [facility] POST.ANon 11-10-2018 POST.AN EDMUND ATKINS [id number] Ordering physician: CHAZ FIGUEROA [id number] Attending physician: Zuleyka Gill 1990 28 DOS: Anesthesia Postop Note - Post Anesthesia Complications: No Patient Orientation: Person, Place, Time Cardiopulmonary Status stable?: Yes 11/10/18 120 Dictated By: Yaw Mohamud DO Electronically Signed Date/Time: 11/10/18 1205 Normal [facility] Encounters Encounter Date Encounter Type Care Provider Facility Start: 09-21-2022 ambulatory Health Risk Assessment Facility:[facility] Start: 10-01-2021 End: 10-02-2021 ambulatory No Primary Care Physician Facility:[facility] Start: 10-01-2021 End: 10-01-2021 Patient encounter procedure [facility], [place] [employer] Start: 02-19-2020 End: 02-22-2020 Patient encounter procedure STEPHANIA NOLASCO [facility] Start: 02-19-2020 End: 02-21-2020 Subsequent hospital visit by physician Stephania [facility] Comment on above: Lymphadenopathy of h ead and neck Start: 04-09-2019 End: 04-10-2019 Emergency department patient visit Karthikeyan Castro Facility:[facility] Start: 11-10-2018 Patient encounter procedure Bernardo Puente Facility:[facility] Start: 10-19-2018 End: 11-10-2018 Patient encounter procedure Bernardo Puente Facility:[facility] Procedures Date Procedure Procedure Detail Performing Clinician Start: 02-19-2020 Blood count complete auto&auto difrntl wbc STEPHANIA NOLASCO Start: 02-19-2020 Comprehensive metabo lic panel STEPHANIA NOLASCO Start: 02-19-2020 Blood count complete auto&auto difrntl wbc Stephania Nolasco Work Phone: Start: 02-19-2020 Comprehensive metabo lic panel Stephania Nolasco Work Phone: Plan of Treatment Date Care Activity Detail Author Start: 03-11-2020 Influenza vaccination Flu vaccine (# 1) [place], [place] Start: 03-10-2020 End: 03-10-2020 Office Visit 03/10/2020 Office Visit Primary Care Stephania Nolasco, [address] [place] [address] [phone] [facility] Start: 2011 Screening for malign ant neoplasm of cervix Cervical cancer screen [place], [place] Start: 2009 DTaP/Tdap/Td vaccine (1 - Tdap) DTaP/Tdap/Td vaccine (1 - Tdap) [place], [place] Start: 2005 HIV screening HIV screen [place], [place] Start: 1991 Varicella vaccine (1 of 2 - 2-dose childhood series) Varicella vaccine (1 of 2 - 2-dose childhood series) [place], [place] Payers Date Payer Category Payer Unknown [id number] 2019 Private Health Insurance [id number] 2018 Self-pay 2018 Unknown [id number] 1990 Unknown [id number] Unknown [id number] .16.8 [id number] Unknown [id number] .16.8 [id number] Unknown [id number] 2.16.84 [id number] Unknown [id number] .16.8 [id number] Unknown [id number] .16.8 [id number] Social History Date Type Detail Facility never a smoker [facility] Start: 02-19-2020 [facility] [place] Start: 02-19-2020 Tobacco use and exposure [facility] Start: 02-19-2020 Alcohol intake [facility] (finding[facility] Sex Assigned At Not on file [facility] Start: 1990 Sex Assigned At Female Ganesh [facility] Work Phone: Progress note 10-14-2021 Note Date & Type Note Facility 10-14-2021 Note HNO ID: [id number] Author: Tamra Beasley APRN.BOILER HOUSE INSPECTOR Service: ? Author Type: Nurse Practitioner Type: [...] unremarkable at t (more content not included)... [facility] Progress note 09-24-2021 Note Date & Type Note Facility 09-24-2021 Note HNO ID: [id number] Author: Nayely Lopez APRN.BOILER HOUSE INSPECTOR Service: ? Author Type: Nurse Practitioner Type: Progress Notes Filed: 09/24/2021 10:15 AM Note Text: This note was created using Visionnaireriter. Subjective Edmund Atkins is a 31 year [...] UR B/O 2. Pelvic pain - ICD9: [id number], ICD10: R10.2 Differential Diagnosis includes Ovarian cyst, PID, endometriosis, pelvic floor dysfunction - GC/CHLAMYDIA AMPLIF, URINE - HCG QUAL UR B/O- negative in office. - Patient has appointment with [facility] next week. She is offered a vaginal exam today and declines-notes current period. Primarily wanted to rule out UTI today and will follow up with [facility] for further evaluation. Eleazar Arreguin RN - Follow-up with your PCP in 3-5 days if symptoms have not improved or sooner if symptoms worsen - Discussed red flags and need for immediate medical evaluation if any occur. - Discussed supportive care treatment with fluids, rest and analgesia. - Discussed expected course of illness TEACHING PROVIDER (Physician/PA/QUESTIONED DOCUMENTS EXAMINER) NOTE OF PERSONAL INVOLVEMENT IN CARE: I have personally seen and examined the patient and performed the medical decision-making components. I have reviewed the Advanced Practice Registered Nurse (QUESTIONED DOCUMENTS EXAMINER) Student's documentation and verified the findings in the note as written. Any additions or changes are noted in bold/italics. Signature: Nayely Lopez Date: 09/24/2021 Time: 10:13 AM [facility] Evaluation note Note Date & Type Note Facility Evaluation note No assessment information availa [facility] Work Phone: Hospital Course Discharge Summary No Discharge Summary Informa tion Discharge Instructions Discharge Instructions No Discharge Instructions Summary Purpose Family History No Family History Records FoundNo Family History Records FoundNo Family History Records FoundNo Family History Records FoundNo Family History Records Found Advance Directives No Advanced Directives Records FoundDocuments on File Type Date Recorded 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 Advance Directives and Living Will Power of Stockroom Helper Assessments Diagnosis Lymphadenopathy of head and neck Chief Complaint and Reason for Visit Chief Complaint PELVIC PAIN Additional Source Comments INFORMATION SOURCE (unrecogn ized section and content) DATE CREATED AUTHOR 11/28/2018 [facility] DATE CREATED AUTHOR AUTHOR'S ORGANIZ ATION 04/13/2019 [facility] ([place] DATE CREATED AUTHOR AUTHOR'S ORGANIZ ATION 02/22/2020 [facility] DATE CREATED AUTHOR AUTHOR'S ORGANIZ ATION 10/16/2021 [facility] DATE CREATED AUTHOR AUTHOR'S ORGANIZ ATION 09/23/2022 [facility] Goals (unrecognized section and content) Goals [...] ON THE PRIMARY CLINICAL RECORDS. [facility]. provides no warranty or guarantee of the accuracy or completeness of information in this document.
== END | disposition home or self-care (01) ==
DX: Z29.14 Encounter for prophylactic rabies immune globulin (principal)
CPT/HCPCS: 90675